=== PATIENT | male | born 1955 | race Caucasian/White ===

== ENCOUNTER 2018-03-15 09:30 | Day surgery (SDC) | payer OTHER ==
[2018-03-14 09:42] LABS: Urine Appearance CLEAR; Urine Bilirubin NEGATIVE (NEG); Urine Blood 1+ (NEG); Urine Color YELLOW; Urine Glucose NEGATIVE (NEG); Urine Protein NEGATIVE (NEG); Urine Specific Gravity 1.015 (1.005-1.030); Urine Urobilinogen 0.2 mg/dL (0.2-1.0); Urine pH 5.5 (5.0-7.0)
[2018-03-14 09:43] LABS: Absolute Lymphocytes (CBC) 1.5 K/uL (0.7-4.9); Absolute Monocytes 0.7 K/uL (0.1-1.3); Absolute Neutrophil 3.9 K/uL (1.8-8.0); Basophils % 0.6 % (0-1.3); Eosinophils % 1.9 % (0-4.4); Hematocrit 44.1 % (39.6-49.0); Lymphocytes % 24.1 % (15.3-44.8); MCH 30.3 pg (27.0-35.0); MPV 8.4 fL (7.6-11.3); Monocytes % 10.7 % (3.3-12.3); RBC Red Blood Cell Count 4.95 M/uL (4.33-5.43)
[2018-03-14 09:48] LABS: Protime INR 1.15
[2018-03-14 10:35] LABS: Potassium 3.9 mmol/L (3.5-5.1)
[2018-03-14 10:36] LABS: Phosphorus 3.6 mg/dL (2.5-4.9); Uric Acid 6.8 mg/dL (3.5-7.2)
[2018-03-14 10:52] LABS: Urine Bacteria NONE SEEN /HPF (NONE SEEN); Urine Culture Reflex Order REFLEXED; Urine RBC <5 /HPF (NONE SEEN)
--- NOTE | 2018-03-14 11:19 | EKG ---
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
--- NOTE | 2018-03-14 11:28 | RAD REPORT ---
EXAM DESCRIPTION: RAD - Chest Pa And Lat (2 Views) - 03/14/2018 11:21 am CLINICAL HISTORY: Preop chest examination, pending lithotripsy COMPARISON: May 2011 TECHNIQUE: PA and lateral views of the chest were obtained. FINDINGS: The lungs are clear. Lung markings are similar to the comparison. Heart size is normal an d central vasculature is within normal limits. No pleural effusion or pneumothorax seen. Thoracic s pine degenerative changes are present. No acute bone process identifiable. No aortic abnormality. Di aphragm is flattened with posterior costophrenic angle blunting. This is a chronic presentation since 2011. Costochondral calcifications present. IMPRESSION: No acute cardiopulmonary process. Above detailed chest findings not significantly diffe rent from 2012.
--- NOTE | 2018-03-14 11:38 | RAD REPORT ---
EXAM DESCRIPTION: RAD - Abdomen Single View - 03/14/2018 11:21 am CLINICAL HISTORY: N20, bilateral kidney stones pending lithotripsy COMPARISON: CT imaging May 2011, KUB March 09 FINDINGS: There are 7 millimeter and 2 millimeter calcifications lower pole of the right kidney. A 9-10 millimeter calcification is present at the left UPJ or proximal ureter. This is lateral to the left L4 transverse process. No change in positioning from March 09. There are probably punctate ur eteral calculi along the superior margin of this UPJ stone similar to March 09. There is a 10-12 mm calcification overlying lower pole of the left kidney. This calcification was pre viously in the right renal pelvis and is likely a mobile stone. Punctate 2-4 mm calcifications are pr esent upper pole left kidney also matching the CT study. Imaging of the pelvis is more limited by technical factors than seen March 09. There still appear s to be a calcification left mid pelvis that is potentially ureteral. No pelvic floor calcifications seen. IMPRESSION: Bilateral nephrolithiasis as detailed. There is a moderate-sized left UPJ calculus as we ll. Small calcification left mid pelvis still present. It is not definitive within this is a ureteral waqas cification or pelvic soft tissue calcification. Overall, no significant change to the calcification pattern since March 09.
[2018-03-15] MEDS ORDERED: Ringers Lactate 1,000 ML IV ONE (09:45)
[2018-03-15] MEDS ORDERED: FENTANYL CITR 100 MCG/2 ML ONE (10:53)
[2018-03-15] MEDS ORDERED: LIDOCAINE 2% MPF 5 ML VIAL ONE (10:53)
[2018-03-15] MEDS ORDERED: PROPOFOL 200 MG/20 ML VIAL IV ONE ×2 (10:53→10:55)
[2018-03-15] MEDS ORDERED: MIDAZOLAM HCL 2 MG/2 ML INJ ONE (10:53)
[2018-03-15] MEDS ORDERED: ONDANSETRON HCL 40 MG/20 ML VIAL ONE (10:54)
[2018-03-15] MEDS: GENTAMICIN 100 MG/100 ML BAG 100 MG/100 ML BAG IV ONE ×2 (11:07→11:10)
[2018-03-15] MEDS ORDERED: ROCURONIUM 50 MG/5 ML VIAL IV ONE (11:19)
[2018-03-15] MEDS ORDERED: SUCCINYLCHOLINE 20 MG/ML (10 ML) IV ONE (11:21)
[2018-03-15] MEDS ORDERED: GLYCOPYRROLATE 0.2 MG/ML SYR ONE ×2 (11:36)
[2018-03-15] MEDS ORDERED: DEXAMETHASONE 10 MG/ML VIAL ONE (11:37)
[2018-03-15] MEDS ORDERED: NEOSTIGMINE 1 MG/ML -5 ML SYRINGE ONE (11:37)
[2018-03-15] MEDS ORDERED: NS 0.9% VIAL 20 ML ONE (11:38)
[2018-03-15] MEDS ORDERED: Phenylephrine HCl 10 MG/ML 1 ML VIAL ONE (11:38)
[2018-03-15] MEDS ORDERED: EPHEDRINE SULF 50 MG/10 ML SYR ONE (11:49)
[2018-03-15 13:07] VITALS: BP 121/55; TEMP 96.8; O2SAT 97
== END 2018-03-15 13:50 | disposition home or self-care (01) ==
LOC: OR 09:30
PROVIDERS: ATTEND Urology
PROC: 0T778DZ Dilation of Left Ureter with Intraluminal Device, Via Natural or Artificial Opening Endoscopic (ICD-10-PCS; 2018-03-15)
PROC: BT1FZZZ Fluoroscopy of Left Kidney, Ureter and Bladder (ICD-10-PCS; 2018-03-15)
PROC: 0TF4XZZ Fragmentation in Left Kidney Pelvis, External Approach (ICD-10-PCS; principal; 2018-03-15 11:00)
DX: N20.2 Calculus of kidney with calculus of ureter (principal); Q62.39 Other obstructive defects of renal pelvis and ureter; I10 Essential (primary) hypertension; Z88.8 Allergy status to other drugs, medicaments and biological substances; Z79.82 Long term (current) use of aspirin
CPT/HCPCS: 36415; 50590; 71046; 74018; 80048; 81001; 84100; 84550; 85025; 85610; 85730; 87086; 87088; 93005; G0103; J0330; J1100; J1580; J2250; J2370; J2405; J2704; J2710; J3010; Q9967

== ENCOUNTER 2018-03-23 10:44 | Day surgery (SDC) | payer OTHER ==
[2018-03-23] MEDS ORDERED: Ringers Lactate 1,000 ML IV ONE ×2 (11:16→14:00)
[2018-03-23] MEDS ORDERED: GENTAMICIN 100 MG/100 ML BAG 100 MG/100 ML BAG IV ONE (11:16)
[2018-03-23] MEDS ORDERED: FENTANYL CITR 100 MCG/2 ML ONE (11:34)
[2018-03-23] MEDS ORDERED: ROCURONIUM 50 MG/5 ML VIAL IV ONE (11:35)
[2018-03-23] MEDS ORDERED: MIDAZOLAM HCL 2 MG/2 ML INJ ONE ×2 (11:35→13:42)
[2018-03-23] MEDS ORDERED: LIDOCAINE 1% MPF 5 ML VIAL ONE (11:35)
[2018-03-23] MEDS ORDERED: PROPOFOL 200 MG/20 ML VIAL IV ONE (11:35)
[2018-03-23] MEDS ORDERED: SUCCINYLCHOLINE 20 MG/ML (10 ML) IV ONE (11:38)
--- NOTE | 2018-03-23 11:50 | RAD REPORT ---
EXAM DESCRIPTION: RAD - Abdomen 1 View (KUB) - 03/23/2018 11:25 am CLINICAL HISTORY: Preop examination, pending treatment for obstructing ureteral calculi, prior litho tripsy COMPARISON: KUB March 17 and March 14 FINDINGS: Double pigtail stent remains in the left collecting system. Lower pole calculus on the rig ht has not changed. No calcifications suspected along the course of the right ureter. No bladder calc jennifer are seen. Multiple small stones or stone fragments are present lower pole left kidney. These appe ar to be smaller in size than the March 17 study likely due to intervening lithotripsy. Patient has a cluster of calcifications in the left UPJ or proximal left ureter region. The largest is in the in ferior aspect of this cluster at approximately 10 mm. Multiple small stones or stone fragments are st acked superiorly to this dominant calculus. Number is increased from March 17 likely reflecting pos t lithotripsy fragments collecting above the obstructing 10 mm stone. IMPRESSION: Approximately 10 mm stone at the left UPJ or proximal ureter unchanged in position from March 17. Multiple smaller stones or stone fragments are stacked along the superior margin of this stone. Multiple small stone fragments are seen lower pole left kidney decreased in size and number. Number of stones stacked near the left UPJ has increased likely representing the stone fragments from treated lower pole calculi. No additional stones or stone fragments along the mid or distal left ureteral stent.
[2018-03-23] MEDS ORDERED: GLYCOPYRROLATE 0.2 MG/ML SYR ONE (12:21)
[2018-03-23] MEDS ORDERED: NEOSTIGMINE 1 MG/ML -5 ML SYRINGE ONE (12:21)
[2018-03-23] MEDS ORDERED: ONDANSETRON HCL 40 MG/20 ML VIAL ONE (12:22)
[2018-03-23] MEDS ORDERED: KETOROLAC 30 MG/ML INJ ONE (12:22)
[2018-03-23] MEDS ORDERED: EPHEDRINE SULF 50 MG/10 ML SYR ONE (12:23)
[2018-03-23] MEDS ORDERED: Mastisol Adhesive Liq ONE (13:35)
--- NOTE | 2018-03-23 13:49 | RAD REPORT ---
EXAM DESCRIPTION: RAD - Urethrocystogrphy Retrograde - 03/23/2018 1:40 pm FINDINGS: Approximately 41 images were obtained during fluoroscopic assisted cystoscopy, ureteroscop y, laser treatment an stone retrieval procedure. Additional cine loop acquisition was obtained. Fluor o time was 4 minutes and 5 seconds. Imaging shows stepwise removal of stent, stone retrieval procedure instead repositioning. No suspicio us or unexpected finding.
[2018-03-23 15:28] VITALS: BP 129/63; TEMP 97.3; O2SAT 98
== END 2018-03-23 16:55 | disposition home or self-care (01) ==
LOC: PRE 10:44 → OR 16:55
PROVIDERS: ATTEND Urology
PROC: 0T778DZ Dilation of Left Ureter with Intraluminal Device, Via Natural or Artificial Opening Endoscopic (ICD-10-PCS; 2018-03-23)
PROC: 0TF78ZZ Fragmentation in Left Ureter, Via Natural or Artificial Opening Endoscopic (ICD-10-PCS; principal; 2018-03-23 12:00)
DX: N20.2 Calculus of kidney with calculus of ureter (principal); Q62.39 Other obstructive defects of renal pelvis and ureter; I10 Essential (primary) hypertension; G47.33 Obstructive sleep apnea (adult) (pediatric); E66.01 Morbid (severe) obesity due to excess calories; Z68.42 Body mass index [BMI] 45.0-49.9, adult; Z79.82 Long term (current) use of aspirin; Z88.8 Allergy status to other drugs, medicaments and biological substances
CPT/HCPCS: 51610; 74018; 74450; J0330; J1580; J2250; J2405; J2704; J2710; J3010; Q9967

== ENCOUNTER 2018-07-29 07:24 | Day surgery (SDC) | payer OTHER ==
[2018-07-29] MEDS ORDERED: ONDANSETRON 4 MG/2 ML VIAL ONE (07:58)
[2018-07-29] MEDS ORDERED: PROPOFOL 200 MG/20 ML VIAL IV ONE (07:58)
[2018-07-29] MEDS ORDERED: LIDOCAINE 1% MPF 5 ML VIAL ONE (07:58)
[2018-07-29] MEDS ORDERED: Ringers Lactate 1,000 ML IV ONE (08:01)
[2018-07-29] MEDS ORDERED: EPINEPHRINE/PF 1 MG/ML AMP ONE (08:41)
[2018-07-29 10:18] VITALS: TEMP 98.9
[2018-07-29 10:21] VITALS: BP 119/56; O2SAT 96
--- NOTE | 2018-08-02 16:02 | ENDO RPT ---
[address], [address] COLONOSCOPY PROCEDURE REPORT EXAM DATE: 07/29/2018 PATIENT NAME: Omid Triplett MR #: [id number] BIRTHDATE: 1955 ATTENDING: Rigo Baugh DR STATUS: outpatient MORTGAGE LENDER: Teresa Hassan and Oneyda Mckoy RN INDICATIONS: The patient is a 62 yr old Male here for a colonoscopy due to Positive Cologuard Fecal Immune Testing PROCEDURE PERFORMED: Colonoscopy with biopsy - cold polypectomy and Colonoscopy with snare polypectomy MEDICATIONS: Per Anesthesia. ESTIMATED BLOOD LOSS: None CONSENT: The patient understands the risks and benefits of the procedure and understands that these risks include, but are not limited to: sedation, allergic reaction, infection, perforation and/or bleeding. Alternative means of evaluation and treatment include, among others: physical exam, x-rays, and/or surgical intervention. The patient elects to proceed with this endoscopic procedure. DESCRIPTION OF PROCEDURE: During intra-op preparation period all mechanical medical equipment was checked for proper function. Hand hygiene and appropriate measures for infection prevention was taken. Procedure, possible complications, alternatives including, but not limited to possibility of bleeding, perforation, tear, infection, sepsis, need for surgery, need for blood transfusion, were explained to the patient. After the risks, benefits and alternatives of the procedure were thoroughly explained, Informed consent was verified, confirmed and timeout was successfully executed by the treatment team. The patient was placed in the left lateral position. A digital rectal exam was performed and revealed internal hemorrhoids. After appropriate level of anesthesia, the scope was passed. The EC-[id number] ([id number]) endoscope was introduced through the anus and advanced to the cecum, which was identified by the ileocecal valve. The quality of the prep was good. The instrument was then slowly withdrawn as the colon was fully examined. Scope withdrawal time was 18 minutes. COLON FINDINGS: Ten small medium sized smooth and polypoid shaped semi-pedunculated polyps with friable surfaces were found throughout the entire examined colon. A polypectomy was performed with a cold snare and using snare cautery. The resection was complete, the polyp tissue was completely retrieved and sent to histology. A one-third circumferential fungating, firm and ulcerated mass was found at the ileocecal valve, this could not be removed, as such a biopsy of the lesion was performed using cold forceps. A tattoo was applied to the cecum. Retroflexed views revealed small hemorrhoids and small rectal polyp. The scope was then completely withdrawn from the patient and the procedure terminated. ADVERSE EVENTS: There were no complications. IMPRESSIONS: 1. Ten small medium sized semi-pedunculated polyps were found throughout the entire examined colon; polypectomy was performed with a cold snare and using snare cautery 2. One-third circumferential mass was found at the ileocecal valve; biopsy of the lesion was performed using cold forceps; a tattoo was applied RECOMMENDATIONS: 1. avoid NSAIDS for 2 weeks 2. await biopsy results 3. fiber rich diet 4. follow-up: office 1 week(s) 5. Monitor for any evidence of rectal bleeding. 6. CT scan 7. hemorrhoidal hygiene 8. increase dietary water 9. Will need CBC, CMP, PT, INR, CEA level 10. surgery RECALL: Surgery Planning Rigo Baugh DR eSigned: Rigo Baugh DR 07/29/2018 9:13 AM cc: CPT CODES: ICD9 CODES: PATIENT NAME: Omid Triplett MR#: [id number]
== END 2018-07-29 10:00 | disposition home or self-care (01) ==
LOC: OR 07:24
PROVIDERS: ATTEND Surgery
PROC: 0DBL8ZX Excision of Transverse Colon, Via Natural or Artificial Opening Endoscopic, Diagnostic (ICD-10-PCS; 2018-07-29)
PROC: 0DBN8ZX Excision of Sigmoid Colon, Via Natural or Artificial Opening Endoscopic, Diagnostic (ICD-10-PCS; 2018-07-29)
PROC: 0DBH8ZX Excision of Cecum, Via Natural or Artificial Opening Endoscopic, Diagnostic (ICD-10-PCS; 2018-07-29)
PROC: 3E0H8GC Introduction of Other Therapeutic Substance into Lower GI, Via Natural or Artificial Opening Endoscopic (ICD-10-PCS; 2018-07-29)
PROC: 0DBK8ZX Excision of Ascending Colon, Via Natural or Artificial Opening Endoscopic, Diagnostic (ICD-10-PCS; principal; 2018-07-29 08:30)
DX: Z12.11 Encounter for screening for malignant neoplasm of colon (principal); C18.0 Malignant neoplasm of cecum; D12.2 Benign neoplasm of ascending colon; D12.5 Benign neoplasm of sigmoid colon; D12.3 Benign neoplasm of transverse colon; K62.1 Rectal polyp; K64.4 Residual hemorrhoidal skin tags; I10 Essential (primary) hypertension; E78.2 Mixed hyperlipidemia; G47.33 Obstructive sleep apnea (adult) (pediatric); Z79.82 Long term (current) use of aspirin; Z79.899 Other long term (current) drug therapy
CPT/HCPCS: 88305; J0171; J2405; J2704

== ENCOUNTER 2018-08-10 08:44 | Inpatient (IN) | payer OTHER ==
[2018-08-09 16:33] LABS: Absolute Lymphocytes (CBC) 1.5 K/uL (0.7-4.9); Absolute Monocytes 0.7 K/uL (0.1-1.3); Absolute Neutrophil 4.8 K/uL (1.8-8.0); Basophils % 0.5 % (0-1.3); Eosinophils % 1.3 % (0-4.4); Hematocrit 40.7 % (39.6-49.0); Lymphocytes % 21.3 % (15.3-44.8); MPV 8.3 fL (7.6-11.3); Monocytes % 9.9 % (3.3-12.3)
[2018-08-09 17:14] LABS: Potassium 3.6 mmol/L (3.5-5.1)
[2018-08-10] MEDS: BUPIVACA 0.25%/EPI 0.0005% MDV 50 ML VIAL ONE ×2 (09:10→10:34)
[2018-08-10] MEDS ORDERED: CEFAZOLIN/SWI 2gm 2 GM/20 ML SYR ONE (09:17)
[2018-08-10] MEDS ORDERED: Ringers Lactate 1,000 ML IV ONE ×3 (09:17→13:06)
[2018-08-10] MEDS ORDERED: MIDAZOLAM HCL 2 MG/2 ML INJ ONE (09:48)
[2018-08-10] MEDS ORDERED: LIDOCAINE 1% MPF 5 ML VIAL ONE (09:48)
[2018-08-10] MEDS ORDERED: DEXAMETHASONE 10 MG/ML VIAL ONE (09:48)
[2018-08-10] MEDS ORDERED: FENTANYL CITR 250 MCG/5 ML ONE ×2 (09:48→11:32)
[2018-08-10] MEDS ORDERED: PROPOFOL 200 MG/20 ML VIAL IV ONE (09:48)
[2018-08-10] MEDS ORDERED: NS 0.9% VIAL 10 ML ONE (09:48)
[2018-08-10] MEDS ORDERED: VECURONIUM 10 MG/VIAL IV ONE (09:49)
[2018-08-10] MEDS ORDERED: ONDANSETRON 4 MG/2 ML VIAL ONE ×2 (09:49→13:14)
[2018-08-10] MEDS ORDERED: EPHEDRINE SULF 50 MG/ML VIAL ONE (10:43)
[2018-08-10] MEDS ORDERED: ROCURONIUM 50 MG/5 ML VIAL IV ONE (11:03)
[2018-08-10] MEDS ORDERED: HYDRALAZINE HCL 20 MG/ML VIAL ONE (12:05)
[2018-08-10] MEDS ORDERED: ESMOLOL HCL 10 ML IV ONE (12:17)
[2018-08-10] MEDS ORDERED: METOPROLOL TARTRATE 5 MG/5 ML INJ IV ONE (12:53)
[2018-08-10] MEDS ORDERED: GLYCOPYRROLATE 0.2 MG/ML SYR ONE ×3 (13:13→13:16)
[2018-08-10] MEDS ORDERED: KETOROLAC 30 MG/ML INJ ONE (13:14)
[2018-08-10] MEDS ORDERED: NEOSTIGMINE 1 MG/ML -10 ML VIAL ONE (13:14)
[2018-08-10] MEDS ORDERED: FENTANYL CITR 100 MCG/2 ML ONE (13:26)
--- NOTE | 2018-08-10 13:33 | P.OP ---
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
[2018-08-10] MEDS ORDERED: ACETAMINOPHEN 500 MG TAB PO PRN (13:43)
[2018-08-10] MEDS ORDERED: ONDANSETRON 4 MG/2 ML VIAL IV PRN (13:43)
[2018-08-10] MEDS: HYDROMORPHONE HCL 2 MG/ML inj ONE ×6 (13:44→14:39)
[2018-08-10] MEDS ORDERED: SUCCINYLCHOLINE 20 MG/ML (10 ML) IV ONE (13:49)
--- NOTE | 2018-08-10 14:36 | OP ---
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 Procedure Performed: Exploratory laparotomy with right hemicolectomy and primary anastomosis. Anesthesia: General endotracheal. Estimated Blood Loss: 150 cc. Specimen: Right colon, #1 and #2 additional lymph nodes from inferior mesenteric vascular pedicle.. Findings: No gross extraintestinal disease. Complications: None. Drains: Urinary catheter. Transferred to recovery room in good condition. Procedure In Detail: After informed consent was obtained, patient was brought to the operating room, prepped and draped in the usual sterile fashion after adequate anesthesia achieved. An upper midlin e incision was made down to the infraumbilical portion with a 10-blade down to the subcutaneous tissu es. Electrocautery was used to dissect down through adipose tissue down to expose the fascial plane. The peritoneum was grasped, elevated, and sharply entered, after this was entered sharply. The rem ainder of the abdomen was opened in its entirety using electrocautery. At this time, I inspected the right colon and saw obvious tattooing from previous colonoscopy in the cecum. The area was palpated and an obvious cecal mass was palpable within the lumen of the colon. There was no extraintestinal spread visible. There were some adhesions to the small bowel, but these appeared to be somewhat alve olar and did not appear to be grossly involved on the distal small bowel. I then inspected the liver and remainder of the peritoneal surfaces and found no evidence of metastatic spread. At this time, the entire small bowel was run from the ligament of Treitz to the ileocecal valve without evidence of gross keanu disease. I then turned attention to the colon and took down lateral to medial direction the White line of Toldt to expose Gerota's fascia and keep it on the down plane. I then continued d issection around to the hepatic flexure and mobilized the colon on the right aspect. I then turned m y attention to the small bowel and dissected the peritoneum on the distal margin of the small bowel t o be demarcated approximately 10 cm from the ileocecal valve. I then came around the medial aspect a nd scored the peritoneum on the medial aspect. I dissected down to expose the ileocolic vessels. Th is was taken down to expose the inferior mesenteric vein and the ileocolic vein and artery. I then e ncircled the ileocolic artery and placed titanium clips as both fiducial marker as well as to clip an d help achieve hemostasis of the structure. I then did the same on the ileocolic vein and ligated th e above structures with the LigaSure Impact device. Once these structures were ligated, remainder of the dissection continued up to expose the duodenum and dissect the colon off the duodenum and leavin g the alveolar plane in place without any obvious injury to the duodenum or head of pancreas. I cont inued toward the right upper quadrant by dissecting the adipose tissue and the mesentery as well as t o bivalve portion of the omentum to allow for better visualization of the colon. After the distal as pect of the resection was identified on the small bowel near the terminal ileum, approximately 10 cm from this ileocecal valve, I created a mesenteric window with the electrocautery and then fired the G IA 75 with a blue load across the small bowel to create the distal margin. I then used a LigaSure de vice to take down the mesentery extending up toward the colon making sure to spare Gerota's fascia an d keep the ureter in the retroperitoneal space. The ureter was not visualized at this time, however, as I kept in the retroperitoneal space. I continued the dissection medially and noted that there wa s a lymph node proximally near the confluence of the inferior mesenteric vein. Therefore, I decided to take an additional margin of an ileocolic vessel closer to the confluence of the inferior mesenter ic vein as these lymph nodes were visualized and had dye present within them from the previous colono scopy inking and they were palpable at this time. I then sent this off for pathologic examination as an additional margin. I placed additional fiducial markers in this area with clips and continued th e dissection of the colon to free it up from the medial and lateral attachments in its entirety. At the distal margin of the colon, specimen was then marked dated beyond the hepatic flexure. The mesen teric window was created on the transverse mesocolon at this point using electrocautery and the KAYLI 7 5 blue load was once again fired across this to create the distal margin. The remainder of the vascu lar tissues including a small right branch of the middle colic vessel was ligated with the LigaSure d evice with easy and good hemostasis without any additional hemostatic maneuvers. The specimen was th en passed off the back table for examination. I then opened the specimen on the back table its entir ety and found the mass to be in the cecum, and with adequate margins evident, I decided to proceed wi th surgery confident that the margins were adequate. I then rescrubbed and reentered the room and in spected the staple lines. I lined the small bowel in a [id number] peristaltic manner with the irwin sverse colon, antimesenteric border. I placed silk stitches on both the proximal and distal aspects of the anastomosis, stay sutures. This was a 2-0 silk suture. I created enterotomies on the small b owel and the along the tenia of the transverse colon and then placed the KAYLI 75 blue load to create a common channel. The KAYLI 75 was fired and removed. The common channel was found to be good and wide ly patent and there was no additional hemostatic maneuvers required. I then closed the defect with a 2-0 PDS suture in a canal type stitch in a running fashion. I then closed and imbricated over the s econd layer with Lembert sutures, a 2-0 nylon suture for a second layer of closure. The mesenteric w indow was then closed with a 3-0 Vicryl in a running fashion and no additional hemostatic maneuvers w ere required. The abdomen was then copiously irrigated multiple times until completely clear and suc tioned out. EBL was minimal, up to this point approximately 100-150 cc, and the abdomen was copiousl y irrigated one last time and suctioned out until completely dry. The patient was positioned back in neutral position as they were in a slight right tilt prior to this, and I wrapped the anastomosis wi th the omentum, which was found to be quite large in volume at this time. I then closed the abdomen in a running fashion using a #1 looped PDS with good approximation of the tissues and irrigated the s kin copiously until completely cleansed. I then dried the skin and closed it with interrupted staple s and sterile dressing was placed over top. The patient tolerated the procedure well without evidenc e of complication, transferred to PACU in good condition. All counts were correct at the end of the case. NISHANT/ALBERTO Voice ID: [id number] Report ID: [id number]
[2018-08-10] MEDS: D5.45NS W/KCL 20MEQ 1,000 ML IV SCH (15:51)
[2018-08-10] MEDS: INSULIN -REGULAR HUMAN 50 UNIT/0.5 ML ML SQ SCH ×2 (16:30→20:32)
[2018-08-10] MEDS: HYDROMORPHONE HCL 1 MG/ML INJ IV PRN (16:40)
--- NOTE | 2018-08-10 18:18 | P.CNS ---
Date of Consult: 08/10/18 Reason for Consult: Sleep Apnea Requesting Physician: Rigo Baugh Chief Complaint: Sleep Apnea History of Present Illness: This is a 63-year-old male with significant past medical history of hypertension and sleep apnea who was admitted to the hospital that likely for resection of his colon cancer. Patient is currently status post Exploratory laparotomy with right hemicolectomy and primary anastomosis by general surgery today. Medicine team was consulted on the case to manage chronic medical condition. Currently patient is doing well. Denies having any nausea vomiting shortness of breath or chest pain at this time. States that his abdominal discomfort is there due to the recent surgery. No other complaints to offer at this time Allergies promethazine [From Phenergan] Allergy (Mild, Verified 08/09/18 15:15) TONGUE SWELLS Home Medications: Aspirin [Aspirin EC 81 MG] 81 mg PO DAILY 08/09/18 Fexofenadine HCl [[place] Allergy] 180 mg PO DAILY 08/09/18 Lisinopril/Hydrochlorothiazide [Lisinopril-Hctz 20-12.5 mg Tab] 1 each PO [id number] 08/09/18 Magnesium Citrate 400 mg PO DAILY 08/09/18 - Past Medical/Surgical History Diabetic: No -: Eczema -: Hyperlipidemia -: Nephrolithiasis -: Obesity -: Seasonal allergies -: hx of cellulitis -: Lithotripsy feb 2018 -: Tonsillectomy 5 yrs Psychosocial/ Personal History: He is of 37 years. He has children. 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 moist/pink, EOMI, Sclerae nonicteric Neck: Supple, 2+ carotid pulse no bruit, No LAD, Without JVD or thyroid abnormality Respiratory: Clear to auscultation bilaterally, Normal air movement Cardiovascular: Regular rate/rhythm, Normal S1 S2 Gastrointestinal: Normal bowel sounds, Other (Abdominal binder in place.), Tenderness Musculoskeletal: No tenderness Integumentary: No rashes Neurological: Normal gait, Normal speech, Normal tone, Normal affect Lymphatics: No axilla or inguinal lymphadenopathy - Problems (1) Colon cancer Current Visit: Yes Status: Acute Plan: Colon cancer -status post expiratory laparotomy with hemicolectomy and primary anastomosis POD # 0 -general surgeries on the case as primary. -clear liquid diet at this time -encouraged to ambulate in use incentive spirometer at this time as well. Qualifiers: Colon location: unspecified part of colon Qualified Code(s): C18.9 - Malignant neoplasm of colon, unspecified (2) Hypertension Current Visit: No Status: Chronic Plan: Blood pressure is on the lower side -hold lisinopril/hctz at this time Qualifiers: Hypertension type: essential hypertension (3) Obstructive sleep apnea Current Visit: No Status: Chronic Plan: CPAP at night (4) Obesity Current Visit: No Status: Chronic Qualifiers: Obesity type: due to excess calories Obesity classification: adult class 3 (BMI >= 40) Serious obesity comorbidity presence: with serious comorbidity Body mass index: BMI 40.0-44.9 Qualified Code(s): E66.01 - Morbid (severe) obesity due to excess calories; Z68.41 - Body mass index (BMI) 40.0-44.9, adult Conclusions/Impression: Will follow along with general surgery to manage patient's chronic medical condition. Thank you for the kind consult Critical Care: No
[2018-08-10 18:23] VITALS: BMI 46.3
[2018-08-10] MEDS ORDERED: PNEUMOCOCCAL VACCINE 0.5 ML IMVAC ONE (19:00)
[2018-08-10] MEDS: HYDROCODONE/APAP 7.5/325 MG TAB PO PRN (20:28)
[2018-08-11] MEDS: HYDROMORPHONE HCL 1 MG/ML INJ IV PRN ×7 (00:29→21:47)
[2018-08-11] MEDS: D5.45NS W/KCL 20MEQ 1,000 ML IV SCH ×4 (00:30→20:41)
[2018-08-11] MEDS ORDERED: HOME MED 1 EA UNK (Lisinopril/Hydrochlorothiazide [Lisinopril-Hctz 20-12.5 Mg Tab] 1 EACH) PO SCH (06:00)
[2018-08-11 06:16] LABS: Absolute Lymphocytes (CBC) 1.4 K/uL (0.7-4.9); Absolute Monocytes 1.1 K/uL (0.1-1.3); Absolute Neutrophil 9.7 K/uL (1.8-8.0); Basophils % 0.1 % (0-1.3); Lymphocytes % 11.4 % (15.3-44.8); Monocytes % 8.8 % (3.3-12.3); RBC Red Blood Cell Count 4.37 M/uL (4.33-5.43)
[2018-08-11] MEDS: INSULIN -REGULAR HUMAN 50 UNIT/0.5 ML ML SQ SCH ×4 (07:30→20:38)
[2018-08-11] MEDS: ENOXAPARIN 40 MG/0.4 ML SQ SCH (08:00)
[2018-08-11] MEDS: FEXOFENADINE 180 MG TAB PO SCH (08:19)
--- NOTE | 2018-08-11 08:29 | P.PN ---
Subjective Date of Service: 08/11/18 Chief Complaint: Sleep Apnea Subjective: Improving (Patient feels generally well, has some cramping, tolerating clear liquids well, hungry for solids, using incentive spirometry, no acute events, pain well controlled with current regime) Physical Examination - Vital Signs Temperature: 97.3 F Blood Pressure: 102/55 Pulse: 65 Respirations: 20 Pulse Ox (%): 97 - Physical Exam General: Alert, In no apparent distress, Cooperative HEENT: Mucous membr. moist/pink Respiratory: Other (IS ~1500cc) Cardiovascular: No edema Gastrointestinal: Other (soft, mild appropriate TTP, ND, incisions clean, marciano in place, minimal serosanguanous drainage on gauze) Integumentary: No rashes Neurological: Normal speech Urinary: Aponte catheter - Studies Laboratory Data (last 24 hrs) 08/11/18 05:50: WBC 12.1 H D, Hgb 11.8 L, Hct 36.0 L, Plt Count 215 Assessment And Plan - Current Problems (Diagnosis) (1) Colon cancer Current Visit: Yes Status: Acute Plan: POD#1 s/p open right hemicolectomy with primary anastamosis Neuro: continue current pain regime, encourage PO pain meds CVS: stable Pulm: continue incentive spirometry Q15min with goal of 15cc/kg, continue CPAP @ night GI: await bowel function, continue serial exams FEN: continue IV hydration, electrolyte replacement protocol, labs pending, advance to full liquid diet with boost / ensure ID: no fever, leukocytosis likely SIRS related from surgery, no need for antibiotics, DC aponte now Endo: continue sliding scale insulin Prophylaxis: continue SCDs until ambulatory today, continue lovenox Ambulate with PT Qualifiers: Colon location: unspecified part of colon Qualified Code(s): C18.9 - Malignant neoplasm of colon, unspecified
[2018-08-11 08:40] LABS: Phosphorus 2.9 mg/dL (2.5-4.9); Potassium 3.8 mmol/L (3.5-5.1)
[2018-08-11] MEDS: HYDROCODONE/APAP 7.5/325 MG TAB PO PRN ×4 (10:04→23:30)
[2018-08-11] MEDS ORDERED: POTASSIUM CL SA 10 MEQ TAB PO ONE (10:33)
--- NOTE | 2018-08-11 11:20 | P.PN ---
Subjective Date of Service: 08/11/18 Chief Complaint: Sleep Apnea Subjective: Tolerating diet, Ambulating, Working w/ PT, Doing well Review of Systems 10-point ROS is otherwise unremarkable Physical Examination - Vital Signs Temperature: 97.3 F Blood Pressure: 102/55 Pulse: 65 Respirations: 20 Pulse Ox (%): 97 - Physical Exam General: Alert, In no apparent distress HEENT: Atraumatic, PERRLA, EOMI Neck: Supple, JVD not distended Respiratory: Clear to auscultation bilaterally, Normal air movement Cardiovascular: Regular rate/rhythm, Normal S1 S2 Gastrointestinal: Normal bowel sounds, Tenderness Musculoskeletal: No tenderness Integumentary: No rashes Neurological: Normal speech, Normal tone, Normal affect Lymphatics: No axilla or inguinal lymphadenopathy - Studies Laboratory Data (last 24 hrs) 08/11/18 05:50: Sodium 137, Potassium 3.8, BUN 13, Creatinine 1.14, Glucose 139 H, Phosphorus 2.9, Magnesium 2.0 08/11/18 05:50: WBC 12.1 H D, Hgb 11.8 L, Hct 36.0 L, Plt Count 215 Medications List Reviewed: Yes Assessment And Plan - Current Problems (Diagnosis) (1) Colon cancer Current Visit: Yes Status: Acute Plan: Colon cancer -status post expiratory laparotomy with hemicolectomy and primary anastomosis POD # 1 -general surgeries on the case as primary. -clear liquid diet at this time -encouraged to ambulate in use incentive spirometer at this time as well. -No BM and Flatulence yet Qualifiers: Colon location: unspecified part of colon Qualified Code(s): C18.9 - Malignant neoplasm of colon, unspecified (2) Hypertension Current Visit: No Status: Chronic Plan: Blood pressure is on the lower side -hold lisinopril/hctz at this time Qualifiers: Hypertension type: essential hypertension (3) Obstructive sleep apnea Current Visit: No Status: Chronic Plan: CPAP at night (4) Obesity Current Visit: No Status: Chronic Qualifiers: Obesity type: due to excess calories Obesity classification: adult class 3 (BMI >= 40) Serious obesity comorbidity presence: with serious comorbidity Body mass index: BMI 40.0-44.9 Qualified Code(s): E66.01 - Morbid (severe) obesity due to excess calories; Z68.41 - Body mass index (BMI) 40.0-44.9, adult Discharge Plan: Home Plan to discharge in: Greater than 2 days - Code Status/Comfort Care Code Status Assessed: Yes Critical Care: No
[2018-08-12 04:41] LABS: Absolute Lymphocytes (CBC) 1.1 K/uL (0.7-4.9); Basophils % 0.3 % (0-1.3); Eosinophils % 0.2 % (0-4.4); Hematocrit 43.7 % (39.6-49.0); Lymphocytes % 8.3 % (15.3-44.8); MPV 8.3 fL (7.6-11.3); Monocytes % 7.5 % (3.3-12.3); RBC Red Blood Cell Count 5.28 M/uL (4.33-5.43)
[2018-08-12 04:59] LABS: Magnesium 2.1 mg/dL (1.8-2.4); Phosphorus 1.9 mg/dL (2.5-4.9)
[2018-08-12] MEDS: D5.45NS W/KCL 20MEQ 1,000 ML IV SCH ×3 (06:41→20:30)
[2018-08-12] MEDS: FEXOFENADINE 180 MG TAB PO SCH (06:50)
[2018-08-12] MEDS: HYDROCODONE/APAP 7.5/325 MG TAB PO PRN ×3 (06:50→20:28)
[2018-08-12] MEDS: INSULIN -REGULAR HUMAN 50 UNIT/0.5 ML ML SQ SCH ×4 (07:30→20:29)
[2018-08-12] MEDS ORDERED: POTASSIUM PHOS IN 0.9 % NACL 15 MMOL/250 ML BAG IV ONE (07:33)
[2018-08-12] MEDS: ENOXAPARIN 40 MG/0.4 ML SQ SCH (09:23)
--- NOTE | 2018-08-12 09:32 | P.PN ---
Subjective Date of Service: 08/12/18 Chief Complaint: Sleep Apnea Subjective: Improving (Patient had small bowel movement and passing gas, pain continues to improve, no breathing difficulty, ambulatory in halls yesterday) Physical Examination - Vital Signs Temperature: 97.4 F Blood Pressure: 154/74 Pulse: 89 Respirations: 18 Pulse Ox (%): 98 - Physical Exam General: Alert, In no apparent distress, Cooperative HEENT: Mucous membr. moist/pink Gastrointestinal: Other (soft, mild appropriate TTP, ND, improved from prior.) - Studies Laboratory Data (last 24 hrs) 08/12/18 04:09: Sodium 138, Potassium 4.0, BUN 7, Creatinine 0.88, Glucose 164 H , Phosphorus 1.9 L, Magnesium 2.1 08/12/18 04:09: WBC 13.2 H, Hgb 14.5 D, Hct 43.7 D, Plt Count 228 Medications List Reviewed: Yes Assessment And Plan - Current Problems (Diagnosis) (1) Colon cancer Current Visit: Yes Status: Acute Plan: POD#2 s/p open right hemicolectomy with primary anastamosis Neuro: continue current pain regime, encourage PO pain meds CVS: stable Pulm: continue incentive spirometry Q15min with goal of 15cc/kg, continue CPAP @ night GI: continue serial exams FEN: continue IV hydration, electrolyte replacement protocol, advance to soft diet with boost / ensure ID: no fever, leukocytosis likely SIRS related from surgery and respiratory component, no need for antibiotics, aponte out Endo: continue sliding scale insulin Prophylaxis: continue SCDs until ambulatory today, continue lovenox Ambulate with PT Qualifiers: Colon location: unspecified part of colon Qualified Code(s): C18.9 - Malignant neoplasm of colon, unspecified
--- NOTE | 2018-08-12 13:24 | P.PN ---
Subjective Date of Service: 08/12/18 Chief Complaint: Sleep Apnea Subjective: Tolerating diet, Ambulating, Improving, Working w/ PT, Doing well Review of Systems 10-point ROS is otherwise unremarkable Physical Examination - Vital Signs Temperature: 97.4 F Blood Pressure: 156/76 Pulse: 84 Respirations: 18 Pulse Ox (%): 96 - Physical Exam General: Alert, In no apparent distress HEENT: Atraumatic, PERRLA, EOMI Neck: Supple, JVD not distended Respiratory: Clear to auscultation bilaterally, Normal air movement Cardiovascular: Regular rate/rhythm, Normal S1 S2 Gastrointestinal: Normal bowel sounds, Other (Insicions C/D/I no drainage noted. ), Tenderness Musculoskeletal: No tenderness Integumentary: No rashes Neurological: Normal speech, Normal tone, Normal affect Lymphatics: No axilla or inguinal lymphadenopathy - Studies Laboratory Data (last 24 hrs) 08/12/18 04:09: Sodium 138, Potassium 4.0, BUN 7, Creatinine 0.88, Glucose 164 H , Phosphorus 1.9 L, Magnesium 2.1 08/12/18 04:09: WBC 13.2 H, Hgb 14.5 D, Hct 43.7 D, Plt Count 228 Medications List Reviewed: Yes Assessment And Plan - Current Problems (Diagnosis) (1) Colon cancer Current Visit: Yes Status: Acute Plan: Colon cancer -status post expiratory laparotomy with hemicolectomy and primary anastomosis POD # 2 -general surgeries on the case as primary. -clear liquid diet at this time -encouraged to ambulate in use incentive spirometer at this time as well. -+ for BM and Flatulence yet Qualifiers: Colon location: unspecified part of colon Qualified Code(s): C18.9 - Malignant neoplasm of colon, unspecified (2) Hypertension Current Visit: No Status: Chronic Plan: Blood pressure is on the higher side - Start lisinopril/hctz at this time Qualifiers: Hypertension type: essential hypertension (3) Obstructive sleep apnea Current Visit: No Status: Chronic Plan: CPAP at night (4) Obesity Current Visit: No Status: Chronic Qualifiers: Obesity type: due to excess calories Obesity classification: adult class 3 (BMI >= 40) Serious obesity comorbidity presence: with serious comorbidity Body mass index: BMI 40.0-44.9 Qualified Code(s): E66.01 - Morbid (severe) obesity due to excess calories; Z68.41 - Body mass index (BMI) 40.0-44.9, adult Discharge Plan: Home Plan to discharge in: 48 Hours - Code Status/Comfort Care Code Status Assessed: Yes Critical Care: No
[2018-08-12] MEDS: ENSURE ENLIVE 237 ML CAN PO SCH ×3 (14:00→21:00)
[2018-08-12] MEDS ORDERED: GLUCAGON 1 MG/VIAL IM PRN (17:00)
[2018-08-12] MEDS ORDERED: D50W 25 GM/50 ML SYRINGE IV PRN (17:00)
[2018-08-12] MEDS: HYDROMORPHONE HCL 1 MG/ML INJ IV PRN (17:21)
[2018-08-13] MEDS: HYDROCODONE/APAP 7.5/325 MG TAB PO PRN ×2 (03:40→08:45)
[2018-08-13 04:45] LABS: Absolute Lymphocytes (CBC) 1.3 K/uL (0.7-4.9); Absolute Neutrophil 7.1 K/uL (1.8-8.0); Basophils % 0.5 % (0-1.3); Eosinophils % 1.8 % (0-4.4); Hematocrit 41.6 % (39.6-49.0); Lymphocytes % 13.3 % (15.3-44.8); MPV 8.2 fL (7.6-11.3); Monocytes % 10.3 % (3.3-12.3); RBC Red Blood Cell Count 5.07 M/uL (4.33-5.43)
[2018-08-13 05:05] LABS: BUN Blood Urea Nitrogen 6 mg/dL (7-18); Bicarbonate 27 mmol/L (21-32); Glucose Level 132 mg/dL (74-106); Magnesium 2.1 mg/dL (1.8-2.4); Phosphorus 2.6 mg/dL (2.5-4.9); Potassium 3.8 mmol/L (3.5-5.1); Sodium Level 138 mmol/L (136-145)
[2018-08-13] MEDS: INSULIN -REGULAR HUMAN 50 UNIT/0.5 ML ML SQ SCH (07:30)
[2018-08-13] MEDS: FEXOFENADINE 180 MG TAB PO SCH (08:40)
[2018-08-13] MEDS: ENOXAPARIN 40 MG/0.4 ML SQ SCH (08:41)
[2018-08-13] MEDS: ENSURE ENLIVE 237 ML CAN PO SCH (08:42)
[2018-08-13] MEDS ORDERED: LISINOPRIL 20 MG TAB PO SCH (09:00)
[2018-08-13] MEDS ORDERED: POTASSIUM CL SA 10 MEQ TAB PO ONE (09:00)
[2018-08-13] MEDS ORDERED: hydroCHLOROthiazide 12.5 MG CAP PO SCH (09:00)
[2018-08-13 09:05] VITALS: O2SAT 94
--- NOTE | 2018-08-13 09:50 | P.DS ---
Admission Date: 08/10/18 Discharge Date: 08/13/18 Disposition: ROUTINE DISCHARGE Discharge Condition: GOOD Reason for Admission: Sleep Apnea Consultations: Dr. 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 Hospital Course: Patient did well post op, had ambulated early, tolerated diet, had return of bowel function on POD#2, pain well controlled, no acute events, no leukocytosis. - no post op complications, followed my ERAS program for enhanced recovery Vital Signs/Physical Exam: Temp Pulse Resp BP Pulse Ox 97.7 F 84 16 159/71 H 97 08/13/18 08:00 08/13/18 08:41 08/13/18 08:00 08/13/18 08:41 08/13/18 08:00 General: Alert, In no apparent distress, Cooperative HEENT: Mucous membr. moist/pink Gastrointestinal: Other (soft, mild appropriate TTP, ND, incision clean and dry with marciano in place) Laboratory Data at Discharge: WBC 9.6 K/uL (4.3-10.9) D 08/13/18 04:01 Hgb 13.9 g/dL (13.6-17.9) 08/13/18 04:01 Hct 41.6 % (39.6-49.0) 08/13/18 04:01 Plt Count 230 K/uL (152-406) 08/13/18 04:01 Sodium 138 mmol/L (136-145) 08/13/18 04:01 Potassium 3.8 mmol/L (3.5-5.1) 08/13/18 04:01 BUN 6 mg/dL (7-18) L 08/13/18 04:01 Creatinine 0.80 mg/dL (0.55-1.3) 08/13/18 04:01 Glucose 132 mg/dL (74-106) H 08/13/18 04:01 Phosphorus 2.6 mg/dL (2.5-4.9) 08/13/18 04:01 Magnesium 2.1 mg/dL (1.8-2.4) 08/13/18 04:01 Home Medications: Aspirin [Aspirin EC 81 MG] 81 mg PO DAILY 08/09/18 Fexofenadine HCl [[place] Allergy] 180 mg PO DAILY 08/09/18 Lisinopril/Hydrochlorothiazide [Lisinopril-Hctz 20-12.5 mg Tab] 1 each PO [id number] 08/09/18 Magnesium Citrate 400 mg PO DAILY 08/09/18 Diet: Regular Activity: No lifting more than 10 lbs Followup: Rigo Baugh MD [ACTIVE - CAN ADMIT] - Time spent managing pt's care (in minutes): 20
--- NOTE | 2018-08-13 11:34 | P.PN ---
Subjective Date of Service: 08/13/18 Chief Complaint: Sleep Apnea Subjective: Tolerating diet, Ambulating, Improving, Working w/ PT, Doing well Review of Systems 10-point ROS is otherwise unremarkable Physical Examination - Vital Signs Temperature: 97.7 F Blood Pressure: 159/71 Pulse: 84 Respirations: 16 Pulse Ox (%): 97 - Physical Exam General: Alert, In no apparent distress, Obese HEENT: Atraumatic, PERRLA, EOMI Neck: Supple, JVD not distended Respiratory: Clear to auscultation bilaterally, Normal air movement Cardiovascular: Regular rate/rhythm, Normal S1 S2 Gastrointestinal: Normal bowel sounds, Other (Incision is clean dry and intact) Musculoskeletal: No tenderness Integumentary: No rashes Neurological: Normal speech, Normal tone, Normal affect Lymphatics: No axilla or inguinal lymphadenopathy - Studies Laboratory Data (last 24 hrs) 08/13/18 04:01: Sodium 138, Potassium 3.8, BUN 6 L, Creatinine 0.80, Glucose 132 H, Phosphorus 2.6, Magnesium 2.1 08/13/18 04:01: WBC 9.6 D, Hgb 13.9, Hct 41.6, Plt Count 230 Medications List Reviewed: Yes Assessment And Plan - Current Problems (Diagnosis) (1) Colon cancer Current Visit: Yes Status: Acute Plan: Colon cancer -status post expiratory laparotomy with hemicolectomy and primary anastomosis POD # 3 -general surgeries on the case as primary. -full liquid diet -encouraged to ambulate in use incentive spirometer at this time as well. -+ for BM and Flatulence yet Qualifiers: Colon location: unspecified part of colon Qualified Code(s): C18.9 - Malignant neoplasm of colon, unspecified (2) Hypertension Current Visit: No Status: Chronic Plan: Blood pressure stable this morning - continue with lisinopril/hctz at this time Qualifiers: Hypertension type: essential hypertension (3) Obstructive sleep apnea Current Visit: No Status: Chronic Plan: CPAP at night (4) Obesity Current Visit: No Status: Chronic Qualifiers: Obesity type: due to excess calories Obesity classification: adult class 3 (BMI >= 40) Serious obesity comorbidity presence: with serious comorbidity Body mass index: BMI 40.0-44.9 Qualified Code(s): E66.01 - Morbid (severe) obesity due to excess calories; Z68.41 - Body mass index (BMI) 40.0-44.9, adult - Plan Patient is currently hemodynamically stable and overall doing well postprocedure. Can be discharged home if okay with general surgery. Discharge Plan: Home Plan to discharge in: Greater than 2 days - Code Status/Comfort Care Code Status Assessed: Yes Critical Care: No
[2018-08-13 12:45] VITALS: BP 169/86; TEMP 97.5
== END 2018-08-13 12:18 | disposition home or self-care (01) | DRG 330 ==
LOC: OR 08:44 → 2ND 13:56
PROVIDERS: ADMIT Surgery; ATTEND Surgery
PROC: 07BB0ZX Excision of Mesenteric Lymphatic, Open Approach, Diagnostic (ICD-10-PCS; 2018-08-10)
PROC: 0DTF0ZZ Resection of Right Large Intestine, Open Approach (ICD-10-PCS; principal; 2018-08-10 10:30)
DX: C18.9 Malignant neoplasm of colon, unspecified (principal); Z68.41 Body mass index [BMI] 40.0-44.9, adult; I10 Essential (primary) hypertension; E78.5 Hyperlipidemia, unspecified; E66.01 Morbid (severe) obesity due to excess calories; G47.33 Obstructive sleep apnea (adult) (pediatric)
CPT/HCPCS: 36415; 80048; 80051; 82565; 82962; 83735; 84100; 84520; 85025; 88309; 94760; 97116; 97163; J0330; J0360; J0690; J1100; J1170; J1650; J2250; J2405; J2704; J2710; J3010

== ENCOUNTER 2018-08-14 16:06 | Inpatient (IN) | payer OTHER ==
[2018-08-14] MEDS ORDERED: NA CHLORIDE 0.9% 1,000 ML ONE (16:29)
[2018-08-14] MEDS ORDERED: METOCLOPRAMIDE 10 MG/2mL INJ ONE (16:29)
[2018-08-14 17:10] LABS: Absolute Lymphocytes (CBC) 0.9 K/uL (0.7-4.9); Absolute Neutrophil 13.9 K/uL (1.8-8.0); Basophils % 0.2 % (0-1.3); Lymphocytes % 5.8 % (15.3-44.8); MPV 8.1 fL (7.6-11.3); Monocytes % 6.5 % (3.3-12.3); RBC Red Blood Cell Count 5.46 M/uL (4.33-5.43)
--- NOTE | 2018-08-14 17:13 | RAD REPORT ---
EXAM DESCRIPTION: RAD - Chest Single View - 08/14/2018 4:49 pm CLINICAL HISTORY: Nausea, excessive hiccups abdominal pain COMPARISON: August 01 TECHNIQUE: AP portable chest image was obtained 1647 hours . FINDINGS: Lung volumes are low. Left costophrenic angle blunting is believed to be artifact of body habitus and shallow inspiration portable imaging. Failure and volume overload are not suspected. Lung markings are accentuated by the shallow inspiration. Left base pneumonia is not confirmed. Patient jeff miller has some lung base atelectasis. Heart size normal range for portable imaging and shallow inspiration. No vascular engorgement. No me asurable pleural effusion and no pneumothorax. No acute bony abnormality seen. No acute aortic findin gs suspected. IMPRESSION: Limited shallow inspiration examination. No pneumonia seen. Lung base atelectasis is likely.
[2018-08-14 17:24] LABS: Albumin 3.4 g/dL (3.4-5.0); Bilirubin Direct 0.5 mg/dL (0-0.2); Bilirubin Total 1.3 mg/dL (0.2-1.0); Magnesium 2.4 mg/dL (1.8-2.4); Phosphorus 4.9 mg/dL (2.5-4.9); Potassium 3.6 mmol/L (3.5-5.1); Protein, Total 7.4 g/dL (6.4-8.2)
[2018-08-14 17:43] LABS: Blood Morphology Comment NOT SEEN (NOT SEEN); Platelet Estimate ADEQ; Urine White Blood Cell Casts OK
--- NOTE | 2018-08-14 18:21 | ER ---
Nurse's Notes [facility] Name: Omid Triplett III Age: 62 yrs Sex: Male : 1955 Arrival Date: 08/14/2018 Time: 16:07 Bed 7 Private MD: Diagnosis: Vomiting;Dehydration;Atelectasis;Constipation, unspecified Presentation: 08/14 16:09 Presenting complaint: Patient states: "i just had an abdominal surgery, today i started hj having non stop hiccups and i felt nauseous and threw up once before i came in here" denies fever, states, been days haven't had a BM; on triage, marciano on abd surgery in place, no drainage noticed;. Transition of care: patient was not received from another setting of care. Onset of symptoms was August 14, 2018. Risk Assessment: Do you want to hurt yourself or someone else? Patient reports no desire to harm self or others. Initial Sepsis Screen: Does the patient meet any 2 criteria? No. Patient's initial sepsis screen is negative. Does the patient have a suspected source of infection? No. Patient's initial sepsis screen is negative. Care prior to arrival: None. 16:09 Method Of Arrival: Ambulatory 16:09 Acuity: GEE 3 hj Triage Assessment: 16:12 General: Appears in no apparent distress. uncomfortable, obese, Behavior is calm, hj cooperative, appropriate for age. Pain: Complains of pain in abdomen. Historical: - Allergies: 16:12 Phenergan; hj - Home Meds: 16:50 lisinopril-hydrochlorothiazide 10-12.5 mg oral tab 1 tab once daily [Active]; [place] hj Oral [Active]; Zofran Oral [Active]; - PMHx: 16:12 Kidney stones; hj - PSHx: 16:12 Lithotripsy; hj - Immunization history:: Adult Immunizations up to date. - Social history:: Smoking status: Patient/guardian denies using tobacco, Patient/guardian denies using alcohol. - Ebola Screening: : Patient negative for fever greater than or equal to 101.5 degrees Fahrenheit, and additional compatible Ebola Virus Disease symptoms Patient denies exposure to infectious person Patient denies travel to an Ebola-affected area in the 21 days before illness onset. - Family history:: not pertinent. - Hospitalizations: : The patient was recently seen at [facility]. Screenin:12 Abuse screen: Denies threats or abuse. Denies injuries from another. Nutritional hj screening: No deficits noted. Tuberculosis screening: No symptoms or risk factors identified. Fall Risk None identified. Assessment: 16:30 General: Appears in no apparent distress. uncomfortable, Behavior is calm, cooperative, hj appropriate for age. Pain: Complains of pain in abdomen. Neuro: Level of Consciousness is awake, alert, obeys commands, Oriented to person, place, time, situation, Appropriate for age. Cardiovascular: Capillary refill < 3 seconds Patient's skin is warm and dry. Respiratory: Airway is patent Respiratory effort is even, unlabored, Respiratory pattern is regular, symmetrical. GI: Reports lower abdominal pain, hiccups. : No signs and/or symptoms were reported regarding the genitourinary system. EENT: No signs and/or symptoms were reported regarding the EENT system. Derm: No signs and/or symptoms reported regarding the dermatologic system. Musculoskeletal: No signs and/or symptoms reported regarding the musculoskeletal system. 17:51 Reassessment: Patient and/or family updated on plan of care and expected duration. Pain hj level reassessed. Patient is alert, oriented x 3, equal unlabored respirations, skin warm/dry/pink. stil with occasional hiccups; denies N/V; able to tolerate oral contrast;. 18:21 Reassessment: Patient and/or family updated on plan of care and expected duration. Pain hj level reassessed. Patient is alert, oriented x 3, equal unlabored respirations, skin warm/dry/pink. awaiting CT scan test; with occasional hiccups still;. 18:38 Reassessment: Patient and/or family updated on plan of care and expected duration. Pain hj level reassessed. Patient is alert, oriented x 3, equal unlabored respirations, skin warm/dry/pink. surgeon in the room with family;. 19:30 Reassessment: Patient appears in no apparent distress at this time. Patient and/or jd3 family updated on plan of care and expected duration. Pain level reassessed. Patient is alert, oriented x 3, equal unlabored respirations, skin warm/dry/pink. 20:30 Reassessment: Patient appears in no apparent distress at this time. Patient and/or jd3 family updated on plan of care and expected duration. Pain level reassessed. Patient is alert, oriented x 3, equal unlabored respirations, skin warm/dry/pink. 21:02 Reassessment: Patient appears in no apparent distress at this time. Patient and/or jd3 family updated on plan of care and expected duration. Pain level reassessed. Patient is alert, oriented x 3, equal unlabored respirations, skin warm/dry/pink. Patient states feeling better. 21:13 Reassessment: report given to nurse Johanna for room 407. j Vital Signs: 16:13 BP 162 / 87; Pulse 89; Resp 18; Temp 98.5(O); Pulse Ox 95% on R/A; Weight 99.79 kg; hj Height 5 ft. 10 in. (177.80 cm); 17:19 BP 144 / 79; Pulse 89; Resp 18; Pulse Ox 95% on R/A; hj 18:22 BP 152 / 65; Pulse 89; Resp 18; Pulse Ox 96% on R/A; hj 18:38 BP 148 / 76; Pulse 87; Resp 18; Pulse Ox 96% on R/A; hj 21:03 BP 119 / 66; Pulse 99; Resp 17 S; Pulse Ox 95% on R/A; jd3 16:13 Body Mass Index 31.57 (99.79 kg, 177.80 cm) ED Course: 16:07 Patient arrived in ED. iw 16:08 Woody Shah, RN is Primary Nurse. hj 16:11 Triage completed. hj 16:13 Arm band placed on left wrist. hj 16:13 Patient has correct armband on for positive identification. Placed in gown. Bed in low hj position. Call light in reach. Side rails up X 1. Adult w/ patient. 16:14 Angelo Quintanilla MD is Attending Physician. rn 16:48 XRAY Chest (1 view) In Process Unspecified. EDMS 16:55 Missed attempt(s): 22 gauge in right antecubital area. Bleeding controlled, band aid aa5 applied, catheter tip intact. 16:55 Initial lab(s) drawn, by me, sent to lab. aa5 17:00 Missed attempt(s): 22 gauge in right forearm. Bleeding controlled, band aid applied, aa5 catheter tip intact. 17:19 Inserted saline lock: 22 gauge in right antecubital area, using aseptic technique. iw 18:20 Get Lima MD is Hospitalizing Provider. rn 19:35 CT Abd/Pelvis - W/Contrast In Process Unspecified. EDMS 19:35 CT completed. Patient tolerated procedure well. Patient moved back from CT. mw3 20:50 NGT: inserted 14 Fr. via right nare. verified return of gastric contents, to bb intermittent suction. Returned gastric contents. Patient tolerated well. 21:14 No provider procedures requiring assistance completed. Patient admitted, IV remains in jd3 place. Administered Medications: 17:16 Drug: NS 0.9% 1000 ml Route: IV; Rate: 1000 ml; Site: right antecubital; hj 18:23 Follow up: IV Status: Infusion continued hj 17:16 Drug: Reglan 10 mg Route: IVP; Site: right antecubital; hj 18:23 Follow up: Response: No adverse reaction hj Output: 21:04 Gastric: 3000ml (NGT); Total: 3000ml. jd3 Outcome: 18:20 Decision to Hospitalize by Provider. rn 21:14 Condition: stable jd3 21:14 Instructed on the need for admit, Demonstrated understanding of instructions. 21:41 Admitted to Med/surg accompanied by nurse, via wheelchair, room 407, with chart, Report jd3 called to Johanna TINEO 21:42 Patient left the ED. jd3 Signatures: Dispatcher [employer] EDMS Ariadne Javier RN RN bb Williams, Irene, RN RN iw Nieto, Roman, MD MD rn Calderon, Audri, RN RN aa5 Woody Shah RN RN hj Davies, Jonathon, RN RN jd3 Edie Noel mw3 Corrections: (The following items were deleted from the chart) 17:10 16:09 Presenting complaint: Patient states: "i just an abdominal surgery, today is hj started having non stop hiccups and i felt nauseous and threw up once before i came in here" denies fever, states, been days haven't had a BM; on triage, marciano on abd surgery in place, no drainage noticed; hj 18:51 16:09 Presenting complaint: Patient states: "i just had an abdominal surgery, today is hj started having non stop hiccups and i felt nauseous and threw up once before i came in here" denies fever, states, been days haven't had a BM; on triage, marciano on abd surgery in place, no drainage noticed; hj 21:13 21:02 Reassessment: Patient appears in no apparent distress at this time. Patient jd3 and/or family updated on plan of care and expected duration. Pain level reassessed. Patient is alert, oriented x 3, equal unlabored respirations, skin warm/dry/pink. jd3
--- NOTE | 2018-08-14 18:21 | EDPHYS ---
Physician Documentation [facility] Name: Omid Triplett III Age: 62 yrs Sex: Male : 1955 Arrival Date: 08/14/2018 Time: 16:07 Bed 7 Private MD: ED Physician Angelo Quintanilla HPI: 08/14 16:50 This 62 yrs old Male presents to ER via Ambulatory with complaints of hiccups rn and bloated abdomen. 16:50 The patient presents to the emergency department with nausea, vomiting. Onset: The rn symptoms/episode began/occurred yesterday. Possible causes: unknown. The symptoms are aggravated by food , The symptoms are alleviated by nothing. Severity of symptoms: At their worst the symptoms were moderate in the emergency department the symptoms are unchanged. The patient has not experienced similar symptoms in the past. The patient has been recently seen by a physician:. Reports recent hemicolectomy this week, sent home, was doing ok, returns for recurrent hiccups, vomiting, bloated abdomen, and no bowel movement for 3 days. Decreased appetite. NO sob or cough. . Historical: - Allergies: 16:12 Phenergan; hj - Home Meds: 16:50 lisinopril-hydrochlorothiazide 10-12.5 mg oral tab 1 tab once daily [Active]; [place] hj Oral [Active]; Zofran Oral [Active]; - PMHx: 16:12 Kidney stones; hj - PSHx: 16:12 Lithotripsy; hj - Immunization history:: Adult Immunizations up to date. - Social history:: Smoking status: Patient/guardian denies using tobacco, Patient/guardian denies using alcohol. - Ebola Screening: : Patient negative for fever greater than or equal to 101.5 degrees Fahrenheit, and additional compatible Ebola Virus Disease symptoms Patient denies exposure to infectious person Patient denies travel to an Ebola-affected area in the 21 days before illness onset. - Family history:: not pertinent. - Hospitalizations: : The patient was recently seen at [facility]. ROS: 16:50 Constitutional: Negative for fever, chills, and weight loss, Eyes: Negative for injury, rn pain, redness, and discharge, Neck: Negative for injury, pain, and swelling, Cardiovascular: Negative for chest pain, palpitations, and edema, Respiratory: Negative for shortness of breath, cough, wheezing, and pleuritic chest pain, Abdomen/GI: + abd bloating, + hiccups, + nausea/vomiting MS/Extremity: Negative for injury and deformity, Skin: Negative for injury, rash, and discoloration, Neuro: + generalized weakness Exam: 16:50 Constitutional: This is a well developed, well nourished patient who is awake, alert, rn and in no acute distress. Head/Face: Normocephalic, atraumatic. Eyes: Pupils equal round and reactive to light, extra-ocular motions intact. Lids and lashes normal. Conjunctiva and sclera are non-icteric and not injected. Cornea within normal limits. Periorbital areas with no swelling, redness, or edema. ENT: dry MM Respiratory: No increased work of breathing, no retractions or nasal flaring. Abdomen/GI: midline vertical surgical wound c/d/i, no erythema or warmth, no masses, + mild tenderness left abdomen, no peritoneal signs. NO hiccups during exam. Skin: Warm, dry MS/ Extremity: No cyanosis. Neuro: Awake and alert, GCS 15, Motor strength 5/5 in all extremities. Normal gait. Vital Signs: 16:13 BP 162 / 87; Pulse 89; Resp 18; Temp 98.5(O); Pulse Ox 95% on R/A; Weight 99.79 kg; hj Height 5 ft. 10 in. (177.80 cm); 17:19 BP 144 / 79; Pulse 89; Resp 18; Pulse Ox 95% on R/A; hj 18:22 BP 152 / 65; Pulse 89; Resp 18; Pulse Ox 96% on R/A; hj 18:38 BP 148 / 76; Pulse 87; Resp 18; Pulse Ox 96% on R/A; hj 21:03 BP 119 / 66; Pulse 99; Resp 17 S; Pulse Ox 95% on R/A; jd3 16:13 Body Mass Index 31.57 (99.79 kg, 177.80 cm) MDM: 16:14 Patient medically screened. rn 18:17 Differential diagnosis: Nonspecific abd pain, ileus, post op complication, atelectasis, rn pleural effusion, constipation, dehydration. Data reviewed: vital signs, nurses notes, lab test result(s), and as a result, I will admit patient. Counseling: I had a detailed discussion with the patient and/or guardian regarding: the historical points, exam findings, and any diagnostic results supporting the discharge/admit diagnosis, lab results, the need for further work-up and treatment in the hospital. Admission orders: after a detailed discussion of the patient's condition and case, the admit orders are written by me. ED course: Spoke with Dr. Baugh, requests admission to Dr. Lima, he will consult, agrees with ct abdomen to rule things out, IV fluids, and symptomatic management at this point.. 08/14 16:16 Order name: CBC with Diff; Complete Time: 17:58 rn 08/14 16:16 Order name: Basic Metabolic Panel; Complete Time: 17:58 rn 08/14 16:16 Order name: Magnesium; Complete Time: 17:59 rn 08/14 16:16 Order name: Phosphorus; Complete Time: 17:59 rn 08/14 16:16 Order name: Hepatic Function; Complete Time: 17:59 rn 08/14 16:16 Order name: Lipase; Complete Time: 17:59 rn 08/14 17:13 Order name: CBC Smear Scan; Complete Time: 17:59 [facility] 08/14 17:24 Order name: Lactate; Complete Time: 18:15 rn 08/14 20:00 Order name: CBC with Automated Diff [facility] 08/14 20:00 Order name: CBC with Automated Diff [facility] 08/14 20:00 Order name: Comprehensive Metabolic Panel [facility] 08/14 20:00 Order name: Comprehensive Metabolic Panel [facility] 08/14 20:00 Order name: Magnesium [facility] 08/14 20:00 Order name: Magnesium [facility] 08/14 16:16 Order name: IV Start; Complete Time: 17:17 rn 08/14 16:16 Order name: XRAY Chest (1 view); Complete Time: 17:22 rn 08/14 16:16 Order name: Labs collected and sent; Complete Time: 17:16 rn 08/14 16:22 Order name: CT Abd/Pelvis - W/Contrast 08/14 19:52 Order name: NG Tube: Dr. Baugh gave verbal orders for small NG tube to low int. jd3 suction.; Complete Time: 21:00 08/14 20:00 Order name: CONS Physician Consult [facility] 08/14 20:00 Order name: NPO EDMS 08/14 20:00 Order name: Phosphorus EDMS 08/14 20:00 Order name: Phosphorus EDMS 08/14 20:01 Order name: Urinalysis EDMS Administered Medications: 17:16 Drug: NS 0.9% 1000 ml Route: IV; Rate: 1000 ml; Site: right antecubital; hj 18:23 Follow up: IV Status: Infusion continued hj 17:16 Drug: Reglan 10 mg Route: IVP; Site: right antecubital; hj 18:23 Follow up: Response: No adverse reaction hj Disposition: 08/14/18 18:20 Hospitalization ordered by Get Lima for Inpatient Admission. Preliminary diagnosis are Vomiting, Dehydration, Atelectasis, Constipation, unspecified. - Bed requested for Telemetry/MedSurg (Inpatient). - Status is Inpatient Admission. jd3 - Condition is Stable. - Problem is new. - Symptoms are unchanged. UTI on Admission? No Signatures: Dispatcher [employer] EDID Ariadne Javier RN RN bb Nieto, Roman, MD MD rn Joaquin, Henry, RN RN Ruben Shannon RN RN jd3 Corrections: (The following items were deleted from the chart) 20:03 18:20 Hospitalization Ordered by Get Lima MD for Inpatient Admission. Preliminary bb diagnosis is Vomiting; Dehydration; Atelectasis; Constipation, unspecified. Bed requested for Telemetry/MedSurg (Inpatient). Status is Inpatient Admission. Condition is Stable. Problem is new. Symptoms are unchanged. UTI on Admission? No. rn 21:42 20:03 08/14/2018 18:20 Hospitalization Ordered by Get Lima MD for Inpatient jd3 Admission. Preliminary diagnosis is Vomiting; Dehydration; Atelectasis; Constipation, unspecified. Bed requested for Telemetry/MedSurg (Inpatient). Status is Inpatient Admission. Condition is Stable. Problem is new. Symptoms are unchanged. UTI on Admission? No. bb
--- NOTE | 2018-08-14 19:53 | RAD REPORT ---
EXAM DESCRIPTION: CT - Abdomen Pelvis W Contrast - 08/14/2018 7:35 pm CLINICAL HISTORY: Bloating, hiccups, abdominal distension recent right hemicolectomy COMPARISON: Pre-surgical CT study August 01 TECHNIQUE: Biphasic, helical CT imaging of the abdomen and pelvis was performed following 100 ml non -ionic IV contrast. No oral contrast given. All CT scans are performed using dose optimization technique as appropriate and may include automated exposure control or mA/KV adjustment according to patient size. FINDINGS: Lung base atelectasis with no acute finding. No pericardial effusion. The liver, spleen, and pancreas show no suspicious findings. Gallbladder and biliary tree are also wi thout suspicious finding. Symmetric renal function is seen with no hydronephrosis or suspicious renal mass. No pyelonephritis o r acute parenchymal process. No bladder abnormalities. No adrenal abnormalities. Stomach is dilated with a large volume of fluid. No gastric outlet obstruction. No gastric wall thick ening or mass. Duodenum and jejunum are also distended to dilated. Distal small bowel is decompressed . There is a gradual transition between dilated proximal small bowel and decompressed distal small priscila wel. No obstructing mass. Internal hernia is not suspected. Mechanical small bowel obstruction not pang spected. No suspicious or unexpected finding at the small bowel colon anastomosis in the right mid abdomen. No free air is present. There is a minimal quantity of free fluid present well within normal limits for the recent surgery. No abscess or other surgical complication. No mass or bulky lymphadenopathy. Pang rgical clips along the ventral abdominal soft tissues. No hernia defect. No suspicious bony findings. IMPRESSION: Delay onset postop ileus. Stomach is dilated with dilation of the proximal small bowel. Mechanical small bowel obstruction not suspected. No free air, abscess or other surgical complication. Small-bowel right colon anastomosis shows no une xpected or suspicious finding.
[2018-08-14] MEDS ORDERED: ONDANSETRON 4 MG/2 ML VIAL IV PRN (19:57)
[2018-08-14] MEDS ORDERED: ACETAMINOPHEN 650MG/RECT SUPP RECT PRN (19:57)
[2018-08-14] MEDS ORDERED: NA CHLORIDE 0.9% 1,000 ML IV SCH (20:00)
[2018-08-14] MEDS ORDERED: MORPHINE 4 MG/ML SYR IV PRN (20:00)
[2018-08-14] MEDS ORDERED: ONDANSETRON 4 MG/2 ML VIAL IV ONE (20:37)
[2018-08-14] MEDS: PIPER/TAZO/NS 3.375gm 3.375 GM/100 ML BAG IVPB SCH (22:00)
[2018-08-14] MEDS ORDERED: PIPERACIL/TAZO 3.375 GM VIAL IV ONE (23:11)
[2018-08-14] MEDS ORDERED: NA CHLORIDE 0.9% 100 ML IV ONE (23:16)
[2018-08-15] MEDS ORDERED: PIPER/TAZO/NS 3.375gm 3.375 GM/100 ML BAG IVPB SCH
[2018-08-15 01:57] VITALS: BMI 31.5
[2018-08-15 03:30] LABS: Urine Appearance CLEAR; Urine Bilirubin NEGATIVE (NEG); Urine Blood TRACE (NEG); Urine Color YELLOW; Urine Glucose NEGATIVE (NEG); Urine Protein NEGATIVE (NEG); Urine Specific Gravity >=1.030 (1.005-1.030); Urine Urobilinogen 0.2 mg/dL (0.2-1.0)
[2018-08-15 03:35] LABS: Urine Microscopic Reflex ORDER UMIC
[2018-08-15] MEDS: PIPER/TAZO/NS 3.375gm 3.375 GM/100 ML BAG IVPB SCH (04:00)
[2018-08-15] MEDS ORDERED: NA CHLORIDE 0.9% 100 ML IV ONE (04:31)
[2018-08-15 04:35] LABS: Absolute Lymphocytes (CBC) 1.3 K/uL (0.7-4.9); Absolute Monocytes 1.2 K/uL (0.1-1.3); Absolute Neutrophil 9.5 K/uL (1.8-8.0); Basophils % 0.6 % (0-1.3); Eosinophils % 0.3 % (0-4.4); Hematocrit 40.4 % (39.6-49.0); Lymphocytes % 10.5 % (15.3-44.8); MPV 8.2 fL (7.6-11.3); Monocytes % 10.1 % (3.3-12.3); RBC Red Blood Cell Count 4.94 M/uL (4.33-5.43)
[2018-08-15] MEDS ORDERED: PIPERACIL/TAZO 3.375 GM VIAL IV ONE (04:36)
[2018-08-15 04:43] LABS: Albumin 2.9 g/dL (3.4-5.0); Bilirubin Total 1.4 mg/dL (0.2-1.0); Magnesium 2.6 mg/dL (1.8-2.4); Phosphorus 4.2 mg/dL (2.5-4.9); Potassium 3.1 mmol/L (3.5-5.1); Protein, Total 6.5 g/dL (6.4-8.2)
[2018-08-15 05:38] LABS: Urine Bacteria <20 /HPF (NONE SEEN); Urine Culture Reflex Order NOT NEEDED; Urine RBC <5 /HPF (NONE SEEN)
[2018-08-15] MEDS: KCL 20 MEQ/100 mL IVPB 20 MEQ/100 ML BAG IV SCH ×3 (06:45→22:58)
[2018-08-15] MEDS: METOCLOPRAMIDE 10 MG/2mL INJ IV SCH ×2 (06:45→21:00)
[2018-08-15] MEDS ORDERED: Ringers Lactate 1,000 ML IV SCH ×2 (07:00→13:40)
--- NOTE | 2018-08-15 07:09 | P.HP ---
Certification for Inpatient Patient admitted to: Inpatient With expected LOS: >2 Midnights Patient will require the following post-hospital care: None Practitioner: I am a practitioner with admitting privileges, knowledge of patient current condition, hospital course, and medical plan of care. Services: Services provided to patient in accordance with Admission requirements found in Title 42 Section 412.3 of the Code of Federal Regulations Patient History Date of Service: 08/14/18 Reason for admission: Abdominal pain status post partial colectomy History of Present Illness: Patient is a 62-year-old gentleman who came into the hospital with abdominal pain and distension. He recently had a partial colectomy after a colonoscopy diagnosed colon cancer. After the partial colectomy patient had done well in the hospital stay and was discharged. However, in less then 48 hrs later, patient ended up back in the hospital with abdominal pain and distention. CT scan revealed patient had an ileus. There was no abdominal abscess. Patient will be admitted to the hospital and NG tube will be placed(patient had almost 2 L of bilious secretions immediately after NGT was placed). Continue on IV antibiotics. Pain control. Surgery to see the patient in the morning Allergies promethazine [From Phenergan] Allergy (Mild, Verified 08/14/18 22:43) TONGUE SWELLS Home Medications: Hydrocodone/Acetaminophen [Hydrocodone-Acetamin 7.5-325] 1 tab PO Q8H PRN Lisinopril/Hydrochlorothiazide [Lisinopril-Hctz 10-12.5 mg Tab] 1 tab PO DAILY 08/15/18 Ondansetron [Zofran (Odt)*] 1 tab PO Q6H 08/15/18 - Past Medical/Surgical History Has patient received pneumonia vaccine in the past: No Diabetic: No -: Eczema -: Hyperlipidemia -: Nephrolithiasis -: Obesity -: Seasonal allergies -: hx of cellulitis -: Benign essential Hypertension -: Venous insufficiency -: Lithotripsy feb 2018 -: Tonsillectomy 5 yrs Psychosocial/ Personal History: He is of 37 years. He has children. 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 - Family History Mother Medical History: Heart disease, Other (see notes) Notes: colon polyps Father Medical History: Heart disease, Lung disease, Cancer - Social History Smoking Status: Never smoker Alcohol use: Yes CD- Drugs: No Caffeine use: Yes Place of Residence: Home Review of Systems 10-point ROS is otherwise unremarkable Physical Examination - Vital Signs Temperature: 97.9 F Blood Pressure: 115/53 Pulse: 77 Respirations: 18 Pulse Ox (%): 90 - Physical Exam General: Alert, In no apparent distress, Oriented x3 HEENT: Atraumatic, Normocephalic, PERRLA, Other (NG tube in place) Neck: Supple, 2+ carotid pulse no bruit, Other (Thick neck) Respiratory: Clear to auscultation bilaterally, Normal air movement Cardiovascular: Regular rate/rhythm, Normal S1 S2 Gastrointestinal: No rebound, No guarding, Absent bowel sounds, Distended, Tenderness Musculoskeletal: No clubbing, No swelling, No contractures Integumentary: No rashes Neurological: Normal gait, Normal speech, Normal tone, Sensation intact, Cranial nerves 3-12 intact, Abnormal strength (4+/5) - Studies Laboratory Data (last 24 hrs) 08/14/18 16:50: Sodium 139, Potassium 3.6, BUN 16, Creatinine 0.97, Glucose 141 H, Phosphorus 4.9 D, Magnesium 2.4, Total Bilirubin 1.3 H, AST 73 H, ALT 95 H, Alkaline Phosphatase 86, Lipase 99 08/14/18 16:50: WBC 15.9 H D, Hgb 14.6, Hct 45.0, Plt Count 286 D Assessment & Plan - Problems (Diagnosis) (1) Status post partial colectomy Current Visit: Yes Status: Acute (2) Ileus Current Visit: Yes Status: Acute (3) Colon cancer Current Visit: No Status: Acute Qualifiers: Colon location: unspecified part of colon Qualified Code(s): C18.9 - Malignant neoplasm of colon, unspecified (4) Hypertension Current Visit: No Status: Chronic Qualifiers: Hypertension type: essential hypertension (5) Obstructive sleep apnea Current Visit: No Status: Chronic - Plan Plan: 1. Aggressive IV hydration 2. NG tube to low intermittent wall suction 3. Surgery consultation 4. IV antibiotics 5. Monitor electrolytes and correct any abnormalities 6. NPO 7. Monitor hemodynamics closely. Continue following labs. Hopefully, patient has significant improvement over the next 48 hrs. At this time, he will need inpatient hospitalization. 8. GI and DVT prophylaxis Discharge Plan: Home Plan to discharge in: Greater than 2 days - Advance Directives Does patient have a Living Will: No Does patient have a Durable POA for Healthcare: No - Code Status/Comfort Care Code Status Assessed: Yes Code Status: Full Code Critical Care: No Time Spent Managing PTS Care (In Minutes): 40
[2018-08-15] MEDS ORDERED: POTASSIUM CL 40 MEQ in NA CHLORIDE 0.9% 500 ML IV SCH ×5 (08:00→21:00)
[2018-08-15] MEDS: ENOXAPARIN 40 MG/0.4 ML SQ SCH (09:56)
[2018-08-15] MEDS: METRONIDAZOLE 500mg IVPB 500 MG/100 ML BAG IV SCH ×2 (09:58→16:09)
[2018-08-15] MEDS: Levofloxacin500mg IV 500 MG/100 ML BAG IV SCH (09:59)
[2018-08-15] MEDS: DIPHENHYDRAMINE 50 MG/ML VIAL IV PRN ×2 (10:58→20:53)
[2018-08-15] MEDS: NA CHLORIDE 0.9% 1,000 ML IV SCH ×3 (13:40→16:11)
--- NOTE | 2018-08-15 16:34 | P.PN ---
Subjective Date of Service: 08/15/18 Chief Complaint: Abdominal pain status post partial colectomy pt seen and examined with RN,no overnight events f/up surgery recommendations ,keep NPo for now NG tube low intermittent suction Review of Systems 10-point ROS is otherwise unremarkable Physical Examination - Vital Signs Temperature: 97.9 F Blood Pressure: 120/68 Pulse: 93 Respirations: 20 Pulse Ox (%): 93 - Physical Exam General: Alert, Oriented x3 HEENT: Atraumatic, Normocephalic, PERRLA Neck: JVD not distended Respiratory: Clear to auscultation bilaterally, Normal air movement Cardiovascular: Normal pulses, Regular rate/rhythm, Normal S1 S2 Gastrointestinal: Normal bowel sounds, Soft and benign, Non-distended Musculoskeletal: No swelling Integumentary: No rashes Neurological: Normal strength at 5/5 x4 extr - Studies Laboratory Data (last 24 hrs) 08/14/18 16:50: Sodium 139, Potassium 3.6, BUN 16, Creatinine 0.97, Glucose 141 H, Phosphorus 4.9 D, Magnesium 2.4, Total Bilirubin 1.3 H, AST 73 H, ALT 95 H, Alkaline Phosphatase 86, Lipase 99 08/14/18 16:50: WBC 15.9 H D, Hgb 14.6, Hct 45.0, Plt Count 286 D Assessment And Plan - Current Problems (Diagnosis) (1) Ileus Current Visit: Yes Status: Acute (2) Status post partial colectomy Current Visit: Yes Status: Acute (3) Colon cancer Current Visit: No Status: Acute Qualifiers: Colon location: unspecified part of colon Qualified Code(s): C18.9 - Malignant neoplasm of colon, unspecified (4) Hypertension Current Visit: No Status: Chronic Qualifiers: Hypertension type: essential hypertension (5) Obesity Current Visit: No Status: Chronic Qualifiers: Obesity type: due to excess calories Obesity classification: adult class 3 (BMI >= 40) Serious obesity comorbidity presence: with serious comorbidity Body mass index: BMI 40.0-44.9 Qualified Code(s): E66.01 - Morbid (severe) obesity due to excess calories; Z68.41 - Body mass index (BMI) 40.0-44.9, adult - Plan Assessment and plan Status post partial colectomy presenting with ilius colon cancer plan: keep NPo NG tube low intermittent suction IVF hydration pain meds IV abx surgery consulted monitor electrolytes and correct accordingly continue other home meds for other comorbidities Gi and DV tppx Discharge Plan: Home Plan to discharge in: 48 Hours
[2018-08-16] MEDS: METRONIDAZOLE 500mg IVPB 500 MG/100 ML BAG IV SCH (01:04)
[2018-08-16] MEDS: NA CHLORIDE 0.9% 1,000 ML IV SCH (04:52)
[2018-08-16] MEDS: KCL 20 MEQ/100 mL IVPB 20 MEQ/100 ML BAG IV SCH (04:56)
[2018-08-16 05:57] LABS: Absolute Lymphocytes (CBC) 1.1 K/uL (0.7-4.9); Absolute Monocytes 0.8 K/uL (0.1-1.3); Absolute Neutrophil 6.9 K/uL (1.8-8.0); Basophils % 0.5 % (0-1.3); Eosinophils % 0.9 % (0-4.4); Hematocrit 40.4 % (39.6-49.0); Lymphocytes % 12.1 % (15.3-44.8); MPV 7.8 fL (7.6-11.3); Monocytes % 9.3 % (3.3-12.3); RBC Red Blood Cell Count 4.87 M/uL (4.33-5.43)
[2018-08-16 06:11] LABS: Albumin 3.1 g/dL (3.4-5.0); Bilirubin Total 1.4 mg/dL (0.2-1.0); Potassium 3.4 mmol/L (3.5-5.1); Protein, Total 6.6 g/dL (6.4-8.2)
[2018-08-16] MEDS: Levofloxacin500mg IV 500 MG/100 ML BAG IV SCH (08:00)
[2018-08-16] MEDS ORDERED: POTASSIUM CL 40 MEQ in NA CHLORIDE 0.9% 500 ML IV SCH (09:00)
[2018-08-16] MEDS: ENOXAPARIN 40 MG/0.4 ML SQ SCH (09:37)
[2018-08-16] MEDS: D5.45NS W/KCL 20MEQ 20 MEQ/1,000 ML BAG IV SCH ×3 (10:43→23:46)
--- NOTE | 2018-08-16 12:53 | P.PN ---
Subjective Date of Service: 08/16/18 Chief Complaint: Abdominal pain status post partial colectomy Subjective: Improving (Patient feels well, no pain, nauea, passing more gas, no distention.) Physical Examination - Vital Signs Temperature: 98.2 F Blood Pressure: 137/63 Pulse: 82 Respirations: 16 Pulse Ox (%): 94 - Physical Exam General: Alert, In no apparent distress, Cooperative Gastrointestinal: Soft and benign, No ascites, No tenderness, No masses, No rebound, No guarding, Other (incision clean and dry) Assessment And Plan - Current Problems (Diagnosis) (1) Ileus Current Visit: Yes Status: Acute Plan: - continue NG tube decompression - electrolyte replacement - increase hydration IV for dehydration - serial exams - recheck labs in AM - ambulate - chew gum - continue incentive spirometry
--- NOTE | 2018-08-16 16:38 | P.PN ---
Subjective Date of Service: 08/16/18 Chief Complaint: Abdominal pain status post partial colectomy Subjective: No new changes pt seen and examined with RN,no overnight events feels better passing gas discussed with surgery viviana keep NPO for now and keep NG tube withincrease IVF hydration Review of Systems 10-point ROS is otherwise unremarkable Physical Examination - Vital Signs Temperature: 98.4 F Blood Pressure: 139/66 Pulse: 76 Respirations: 16 Pulse Ox (%): 96 - Physical Exam General: Alert, Oriented x3 HEENT: Normocephalic, PERRLA Neck: JVD not distended Respiratory: Clear to auscultation bilaterally, Normal air movement Cardiovascular: No edema, Regular rate/rhythm, Normal S1 S2 Gastrointestinal: Hypoactive, Soft and benign, Non-distended Musculoskeletal: No clubbing, No swelling Integumentary: No rashes Neurological: Normal speech, Normal strength at 5/5 x4 extr Assessment And Plan - Current Problems (Diagnosis) (1) Ileus Current Visit: Yes Status: Acute (2) Status post partial colectomy Current Visit: Yes Status: Acute (3) Colon cancer Current Visit: No Status: Acute Qualifiers: Colon location: unspecified part of colon Qualified Code(s): C18.9 - Malignant neoplasm of colon, unspecified (4) Hypertension Current Visit: No Status: Chronic Qualifiers: Hypertension type: essential hypertension (5) Obesity Current Visit: No Status: Chronic Qualifiers: Obesity type: due to excess calories Obesity classification: adult class 3 (BMI >= 40) Serious obesity comorbidity presence: with serious comorbidity Body mass index: BMI 40.0-44.9 Qualified Code(s): E66.01 - Morbid (severe) obesity due to excess calories; Z68.41 - Body mass index (BMI) 40.0-44.9, adult - Plan Assessment and plan Status post partial colectomy presenting with ilius colon cancer plan: keep NPo NG tube IVF hydration pain meds surgery consulted monitor electrolytes and correct accordingly continue other home meds for other comorbidities Gi and DV tppx Discharge Plan: Home Plan to discharge in: 48 Hours
--- NOTE | 2018-08-16 17:24 | CON ---
Date of Consultation: 08/14/2018 Brief History Of Present Illness: The patient is a 62-year-old man known to me from previous admissi on, who came to the hospital with abdominal pain and distention, status post right hemicolectomy for colon cancer. He was discharged the day before with tolerating p.o., ambulatory, and having bowel fu nction with minimal pain. However, over the course of the evening, he developed some minimal abdomin al distention, some nausea and vomiting, and persistent hiccups. He came back to the emergency room with the above-stated complaints and a CT scan revealed he had a postoperative proximal ileus with no other acute findings. He states his feeling was that he did not have significant increase in pain. Past Medical History: Significant for eczema, hyperlipidemia, nephrolithiasis, obesity, seasonal all ergies, cellulitis, benign hypertension, venous insufficiency. Past Surgical History: Right hemicolectomy with primary anastomosis, lithotripsy, and tonsillectomy. Social History: He is , has children. 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 Denies smoking, alcohol, or recr eational drug use. Family History: Colon polyps, heart disease and lung disease in the father as well as cancer. Review of Systems: Ten-point review of systems other than HPI, denies. Allergies: TO PHENERGAN. Home Medications: Include [place], lisinopril, and Zofran. Physical Examination: Vital Signs: At the time of my examination, his BMI is 31.6. His blood pressure was 120/63, pulse 1 01, respiratory rate 18, temperature 98.2. General: He is awake, alert, and oriented. Psychiatric: Appropriate conversive. HEENT: Normocephalic. Sclerae icteric. Mucous membranes are moist. Oropharynx clear. Neck: Supple. No JVD. Chest: Normal expansion and excursion. Cardiovascular: Regular rate and rhythm. During the time of my examination, it came down from 101 t o 97. Abdomen: Soft with mild epigastric fullness and tenderness to palpation. No rebound. No gua rding. No focal peritonitis. Incision was clean and dry. [place] in place. Extremities: No clubbing, cyanosis, or edema. Skin: Warm and dry. Laboratory Data: Reveals a white blood cell count of 15.9, hemoglobin 14.6, hematocrit of 40.0, plat elet count of 286, neutrophils 87%. His sodium is 139, potassium 3.6, chloride 99, carbon dioxide 32 , BUN 16, creatinine 0.97, glucose is 141, lactic acid 1.5, phosphorus is 4.9, magnesium 2.4, total b ilirubin 1.3, direct component 0.5, AST 73, ALT 95. His lipase is 99. He had an imaging performed, which included a chest x-ray which was officially read as limited shallow inspiratory examination. N o pneumonia seen. Lung base atelectasis is likely. He had a CT scan for the abdomen and pelvis as w ell, which was officially read as delayed onset postop ileus. Stomach is dilated with dilatation of the proximal small bowel mechanical bowel obstruction, not suspected. No free air abscess or other s urgical complications. Small bowel right colon anastomosis shows no unexpected or suspicious finding s. Assessment And Plan: This is a 62-year-old male, who presents with signs and symptoms of postoperati ve ileus with a predominantly gastric proximal small bowel distention with smooth tapering. 1.IV fluid hydration. 2.NG tube decompression. 3.Serial abdominal exams. 4.Antibiotic coverage. 5.I will follow along with you. Thank you for this interesting consult. NISHANT/ALBERTO Voice ID: [id number] Report ID: [id number]
[2018-08-16] MEDS: DIPHENHYDRAMINE 50 MG/ML VIAL IV PRN (17:45)
[2018-08-16] MEDS: METOCLOPRAMIDE 10 MG/2mL INJ IV SCH (21:00)
[2018-08-17] MEDS: DIPHENHYDRAMINE 50 MG/ML VIAL IV PRN ×3 (01:53→22:25)
[2018-08-17] MEDS: D5.45NS W/KCL 20MEQ 20 MEQ/1,000 ML BAG IV SCH ×3 (05:46→19:10)
[2018-08-17 06:36] LABS: Absolute Lymphocytes (CBC) 1.3 K/uL (0.7-4.9); Absolute Monocytes 0.6 K/uL (0.1-1.3); Absolute Neutrophil 5.1 K/uL (1.8-8.0); Basophils % 0.7 % (0-1.3); Eosinophils % 1.8 % (0-4.4); Lymphocytes % 18.4 % (15.3-44.8); MPV 7.9 fL (7.6-11.3); Monocytes % 8.1 % (3.3-12.3); RBC Red Blood Cell Count 4.82 M/uL (4.33-5.43)
[2018-08-17 06:56] LABS: Magnesium 2.6 mg/dL (1.8-2.4); Phosphorus 2.6 mg/dL (2.5-4.9); Potassium 3.7 mmol/L (3.5-5.1)
[2018-08-17] MEDS ORDERED: KCL 20 MEQ/100 mL IVPB 20 MEQ/100 ML BAG IV SCH (08:00)
[2018-08-17] MEDS: ENOXAPARIN 40 MG/0.4 ML SQ SCH (08:44)
--- NOTE | 2018-08-17 08:47 | RAD REPORT ---
EXAM DESCRIPTION: RAD - Abdomen 1 View (KUB) - 08/17/2018 8:21 am CLINICAL HISTORY: SBO Pain COMPARISON: Abdomen 1 View (KUB) dated 07/07/2018; Abdomen 1 View (KUB) dated 03/23/2018; Abdomen 1 Vi ew (KUB) dated 03/17/2018; Abdomen 1 View (KUB) dated 03/09/2018; Abdomen Pelvis W Contrast dated FINDINGS: Several organized loops of small bowel are seen in the left abdomen suggesting partial mec hanical small-bowel obstruction. Degree of small bowel dilatation is mild. No evidence of pneumoperit oneum. Enteric tube is present in the stomach.
--- NOTE | 2018-08-17 10:28 | P.PN ---
Subjective Date of Service: 08/17/18 Chief Complaint: Abdominal pain status post partial colectomy Subjective: Improving (Patient has no pain, and taking minimal pain meds, no distention, had a large loose BM today, continues to pass gas, ambulatory.) Physical Examination - Vital Signs Temperature: 98.2 F Blood Pressure: 123/58 Pulse: 71 Respirations: 18 Pulse Ox (%): 96 - Physical Exam General: Alert, In no apparent distress, Cooperative HEENT: Mucous membr. moist/pink Gastrointestinal: Soft and benign, Non-distended, No ascites, No tenderness, No masses, No rebound, No guarding, Other (incision clean with marciano in place) Assessment And Plan - Current Problems (Diagnosis) (1) Ileus Current Visit: Yes Status: Acute Plan: - continue NG tube decompression - electrolyte replacement - continue hydration IV for dehydration - serial exams - recheck labs in AM - ambulate - chew gum - continue incentive spirometry - will consider clamp trial in AM
--- NOTE | 2018-08-17 17:32 | P.PN ---
Subjective Date of Service: 08/17/18 Primary Care Provider: Surgery-Dr. Baugh Chief Complaint: Abdominal pain status post partial colectomy Subjective: Improving Physical Examination - Vital Signs Temperature: 98.2 F Blood Pressure: 123/58 Pulse: 71 Respirations: 18 Pulse Ox (%): 96 - Physical Exam General: Alert, In no apparent distress, Oriented x3, Cooperative HEENT: Atraumatic Neck: Supple Respiratory: Clear to auscultation bilaterally, Normal air movement Cardiovascular: Normal pulses, Regular rate/rhythm Gastrointestinal: Normal bowel sounds, Hypoactive, Non-distended, No tenderness , No masses, No rebound, No guarding, Other (post surgical changes to the abdomen noted) Musculoskeletal: No erythema, No tenderness, No warmth Neurological: Normal speech, Normal strength at 5/5 x4 extr, Normal tone, Normal affect - Studies Medications List Reviewed: Yes Assessment & Plan Discharge Plan: Home Plan to discharge in: Greater than 2 days Physician Review Additional Text: Impression: Ileus status post partial colectomy for colon cancer Hypertension Plan: Patient continues to improve. NG tube in place. Case discussed with surgery. Will continue with NG tube. Patient remains NPO. Surgery will consider clamping NG tube tomorrow with improvement. If stable patient can likely start clear liquid diet tomorrow. Encourage ambulation. Encourage incentive spirometer. Continue DVT prophylaxis-Lovenox. Will provide medication for blood pressure control. Will continue to reassess. Will recheck tomorrow. Time Spent Managing Pts Care (In Minutes): 55
[2018-08-18] MEDS: D5.45NS W/KCL 20MEQ 20 MEQ/1,000 ML BAG IV SCH ×4 (02:09→20:34)
[2018-08-18 06:36] LABS: Absolute Lymphocytes (CBC) 1.1 K/uL (0.7-4.9); Absolute Monocytes 0.5 K/uL (0.1-1.3); Absolute Neutrophil 4.2 K/uL (1.8-8.0); Basophils % 0.4 % (0-1.3); Eosinophils % 2.8 % (0-4.4); Hematocrit 38.2 % (39.6-49.0); Lymphocytes % 18.6 % (15.3-44.8); MPV 7.8 fL (7.6-11.3); Monocytes % 8.6 % (3.3-12.3); RBC Red Blood Cell Count 4.58 M/uL (4.33-5.43)
[2018-08-18 06:41] LABS: Magnesium 2.4 mg/dL (1.8-2.4); Phosphorus 2.3 mg/dL (2.5-4.9); Potassium 3.7 mmol/L (3.5-5.1)
[2018-08-18] MEDS ORDERED: KCL 20 MEQ/100 mL IVPB 20 MEQ/100 ML BAG IV SCH (09:00)
[2018-08-18] MEDS: ENOXAPARIN 40 MG/0.4 ML SQ SCH (10:10)
--- NOTE | 2018-08-18 12:59 | P.PN ---
Subjective Date of Service: 08/18/18 Primary Care Provider: Surgery-Dr. Baugh Chief Complaint: Abdominal pain status post partial colectomy Subjective: Improving, Other (Patient did report loose bowel movement) Physical Examination - Vital Signs Temperature: 98.0 F Blood Pressure: 145/81 Pulse: 77 Respirations: 18 Pulse Ox (%): 96 - Physical Exam General: Alert, In no apparent distress, Oriented x3, Cooperative HEENT: Atraumatic Neck: Supple Respiratory: Clear to auscultation bilaterally, Normal air movement Cardiovascular: Normal pulses, Regular rate/rhythm Gastrointestinal: Normal bowel sounds, No tenderness, No masses, No rebound, No guarding Musculoskeletal: No erythema, No tenderness, No warmth Neurological: Normal speech, Normal strength at 5/5 x4 extr, Normal tone, Normal affect - Studies Medications List Reviewed: Yes Assessment & Plan Discharge Plan: Home Plan to discharge in: Greater than 2 days Physician Review Additional Text: Impression: Ileus status post partial colectomy for colon cancer Hypertension Plan: Ileus status post partial colectomy for colon cancer: Case discussed with surgery. Patient will be given a clamp trial. If successful patient will start clear liquid diet. Encourage ambulation. Encourage incentive spirometer. Continue DVT prophylaxis. Will continue to monitor closely. Hypertension: Continue medication Time Spent Managing Pts Care (In Minutes): 55
[2018-08-18] MEDS ORDERED: FEXOFENADINE 180 MG TAB PO PRN (22:18)
[2018-08-19] MEDS: D5.45NS W/KCL 20MEQ 20 MEQ/1,000 ML BAG IV SCH ×4 (03:45→18:49)
[2018-08-19 06:12] LABS: Absolute Lymphocytes (CBC) 1.4 K/uL (0.7-4.9); Absolute Monocytes 0.6 K/uL (0.1-1.3); Absolute Neutrophil 5.3 K/uL (1.8-8.0); Basophils % 0.6 % (0-1.3); Eosinophils % 2.1 % (0-4.4); Hematocrit 39.9 % (39.6-49.0); Lymphocytes % 18.1 % (15.3-44.8); MPV 7.8 fL (7.6-11.3); Monocytes % 8.4 % (3.3-12.3); RBC Red Blood Cell Count 4.87 M/uL (4.33-5.43)
[2018-08-19 06:36] LABS: BUN Blood Urea Nitrogen 9 mg/dL (7-18); Bicarbonate 26 mmol/L (21-32); Glucose Level 117 mg/dL (74-106); Magnesium 2.2 mg/dL (1.8-2.4); Phosphorus 2.1 mg/dL (2.5-4.9); Potassium 3.6 mmol/L (3.5-5.1); Sodium Level 140 mmol/L (136-145)
[2018-08-19] MEDS: POTASS/SODIUM PHOSPHATE 1 PKT POWD.PACK PO SCH ×3 (08:08→12:03)
[2018-08-19] MEDS: FEXOFENADINE 180 MG TAB PO SCH (08:09)
[2018-08-19] MEDS: ENOXAPARIN 40 MG/0.4 ML SQ SCH (08:09)
[2018-08-19] MEDS: ENSURE CLEAR 200 ML CAN PO SCH ×3 (09:00→21:00)
[2018-08-19] MEDS ORDERED: POTASS/SODIUM PHOSPHATE 1 PKT POWD.PACK PO SCH (09:00)
--- NOTE | 2018-08-19 09:03 | P.PN ---
Subjective Date of Service: 08/19/18 Primary Care Provider: Surgery-Dr. Baugh Chief Complaint: Abdominal pain status post partial colectomy Subjective: Improving (Passing gas, no pain, tolerated clears yesterday after NG tube removal, ambulatory,no nausea, no hiccups, no emesis.) Physical Examination - Vital Signs Temperature: 98.0 F Blood Pressure: 138/79 Pulse: 82 Respirations: 18 Pulse Ox (%): 96 - Physical Exam General: Alert, In no apparent distress, Cooperative Respiratory: Other (IS >3000) Gastrointestinal: Soft and benign, Non-distended, No ascites, No tenderness, No masses, No rebound, No guarding, Other (incision clean with marciano in place, no drainage) - Studies Medications List Reviewed: Yes Assessment And Plan - Current Problems (Diagnosis) (1) Ileus Current Visit: Yes Status: Acute Plan: - electrolyte replacement - DC hydration IV fluids for dehydration - serial exams - ambulate - chew gum - continue incentive spirometry - DC home soon if PO soft tolerated - Dr. Strong covering until wednesday Physician Review Additional Text: Impression: Ileus status post partial colectomy for colon cancer Hypertension Plan: Ileus status post partial colectomy for colon cancer: Case discussed with surgery. Patient will be given a clamp trial. If successful patient will start clear liquid diet. Encourage ambulation. Encourage incentive spirometer. Continue DVT prophylaxis. Will continue to monitor closely. Hypertension: Continue medication
[2018-08-19] MEDS: FLUTICASONE 50MCG NASAL SPRAY NAS SCH ×2 (09:23→21:15)
--- NOTE | 2018-08-19 14:46 | P.PN ---
Subjective Date of Service: 08/19/18 Primary Care Provider: Surgery-Dr. Baugh Chief Complaint: Abdominal pain status post partial colectomy Subjective: Improving Physical Examination - Vital Signs Temperature: 97.8 F Blood Pressure: 144/85 Pulse: 83 Respirations: 18 Pulse Ox (%): 99 - Physical Exam General: Alert, In no apparent distress, Oriented x3, Cooperative HEENT: Atraumatic Neck: Supple Respiratory: Clear to auscultation bilaterally, Normal air movement Cardiovascular: Normal pulses, Regular rate/rhythm Gastrointestinal: Normal bowel sounds, Soft and benign, Non-distended, No masses , No rebound, No guarding Musculoskeletal: No erythema, No tenderness, No warmth Integumentary: No tenderness/swelling, No erythema, No warmth, No cyanosis Neurological: Normal speech, Normal strength at 5/5 x4 extr, Normal tone, Normal affect - Studies Medications List Reviewed: Yes Assessment & Plan Discharge Plan: Home Plan to discharge in: 24 Hours Physician Review Additional Text: Impression: Ileus status post partial colectomy for colon cancer Hypertension Chronic allergic rhinitis Plan: Ileus status post partial colectomy for colon cancer: Case discussed with surgery. Patient has been doing well. Diet will be advanced to soft diet. Encourage ambulation. Anticipate discharge in the next 24 hr if improved and stable. Encourage incentive spirometer. Patient maintains DVT prophylaxis. Hypertension: Continue medication Chronic allergic rhinitis: Continue with Flonase and Carolina. Time Spent Managing Pts Care (In Minutes): 55
[2018-08-19 22:55] VITALS: O2SAT 98
[2018-08-20] MEDS: D5.45NS W/KCL 20MEQ 20 MEQ/1,000 ML BAG IV SCH (00:53)
[2018-08-20 04:41] LABS: Absolute Lymphocytes (CBC) 1.4 K/uL (0.7-4.9); Absolute Monocytes 0.6 K/uL (0.1-1.3); Absolute Neutrophil 4.6 K/uL (1.8-8.0); Basophils % 0.7 % (0-1.3); Eosinophils % 1.6 % (0-4.4); Hematocrit 38.9 % (39.6-49.0); Lymphocytes % 20.5 % (15.3-44.8); Monocytes % 8.4 % (3.3-12.3); RBC Red Blood Cell Count 4.74 M/uL (4.33-5.43)
[2018-08-20 05:01] LABS: BUN Blood Urea Nitrogen 6 mg/dL (7-18); Bicarbonate 23 mmol/L (21-32); Glucose Level 122 mg/dL (74-106); Phosphorus 2.3 mg/dL (2.5-4.9); Potassium 3.6 mmol/L (3.5-5.1); Sodium Level 139 mmol/L (136-145)
[2018-08-20] MEDS ORDERED: POTASS/SODIUM PHOSPHATE 1 PKT POWD.PACK PO SCH (08:00)
[2018-08-20 08:45] VITALS: BP 129/70; TEMP 97.6
[2018-08-20] MEDS: FLUTICASONE 50MCG NASAL SPRAY NAS SCH (08:46)
[2018-08-20] MEDS: FEXOFENADINE 180 MG TAB PO SCH (08:46)
[2018-08-20] MEDS: ENOXAPARIN 40 MG/0.4 ML SQ SCH (08:46)
[2018-08-20] MEDS: ENSURE CLEAR 200 ML CAN PO SCH (08:54)
--- NOTE | 2018-08-20 09:21 | P.DS ---
Admission Date: 08/14/18 Discharge Date: 08/20/18 Primary Care Provider: Surgery-Dr. Baugh Disposition: ROUTINE DISCHARGE Discharge Condition: GOOD Reason for Admission: Abdominal pain status post partial colectomy Consultations: Surgery-Dr. Baugh Procedures: CT scan: FINDINGS: Lung base atelectasis with no acute finding. No pericardial effusion. The liver, spleen, and pancreas show no suspicious findings. Gallbladder and biliary tree are also without suspicious finding. Symmetric renal function is seen with no hydronephrosis or suspicious renal mass. No pyelonephritis or acute parenchymal process. No bladder abnormalities. No adrenal abnormalities. Stomach is dilated with a large volume of fluid. No gastric outlet obstruction. No gastric wall thickening or mass. Duodenum and jejunum are also distended to dilated. Distal small bowel is decompressed. There is a gradual transition between dilated proximal small bowel and decompressed distal small bowel. No obstructing mass. Internal hernia is not suspected. Mechanical small bowel obstruction not suspected. No suspicious or unexpected finding at the small bowel colon anastomosis in the right mid abdomen. No free air is present. There is a minimal quantity of free fluid present well within normal limits for the recent surgery. No abscess or other surgical complication. No mass or bulky lymphadenopathy. Surgical clips along the ventral abdominal soft tissues. No hernia defect. No suspicious bony findings. IMPRESSION: Delay onset postop ileus. Stomach is dilated with dilation of the proximal small bowel. Mechanical small bowel obstruction not suspected. No free air, abscess or other surgical complication. Small-bowel right colon anastomosis shows no unexpected or suspicious finding. Impression: Ileus status post partial colectomy for colon cancer Hypertension Chronic allergic rhinitis Brief History of Present Illness: 62-year-old male presented to emergency room with abdominal pain and distention. Patient had recent partial colectomy for colon cancer. Patient found to have ileus. Patient was admitted for treatment. Hospital Course: Patient presented with abdominal pain and distention. Patient found to have ileus. Patient with recent partial colectomy for colon cancer. Patient was seen and evaluated by surgery. No surgical intervention was required. During the course of his stay patient required NG tube and IV fluids. Patient improved during the course of his stay. Ileus resolved. At discharge he is able to tolerate his diet. No significant abdominal pain or distention noted. Patient has had multiple bowel movements. At discharge patient will continue with a soft diet. Encourage incentive spirometer. Recommend to follow up with surgery within 1 week to follow up this hospitalization and to followup with his postsurgical care. Patient with hypertension. Patient will continue with his medication- lisinopril hydrochlorothiazide 10/12.5 mg daily. Recommend to maintain blood pressures less 150/80. Further adjustment can be done by his PCP. Patient with chronic allergic rhinitis. Patient may continue with Carolina 180 mg daily and Flonase 1 spray per nostril twice. Vital Signs/Physical Exam: Temp Pulse Resp BP Pulse Ox 97.6 F 86 16 129/70 95 08/20/18 08:00 08/20/18 08:00 08/20/18 08:00 08/20/18 08:00 08/20/18 08:00 General: Alert, In no apparent distress, Oriented x3, Cooperative HEENT: Atraumatic Neck: Supple Respiratory: Clear to auscultation bilaterally, Normal air movement Cardiovascular: Normal pulses, Regular rate/rhythm Gastrointestinal: Normal bowel sounds, Soft and benign, Non-distended, No ascites, No tenderness, No masses, No rebound, No guarding Musculoskeletal: No erythema, No tenderness, No warmth Integumentary: No tenderness/swelling, No erythema, No warmth, No cyanosis Neurological: Normal speech, Normal strength at 5/5 x4 extr, Normal tone, Normal affect Laboratory Data at Discharge: WBC 6.7 K/uL (4.3-10.9) 08/20/18 04:02 Hgb 13.0 g/dL (13.6-17.9) L 08/20/18 04:02 Hct 38.9 % (39.6-49.0) L 08/20/18 04:02 Plt Count 226 K/uL (152-406) 08/20/18 04:02 Sodium 139 mmol/L (136-145) 08/20/18 04:02 Potassium 3.6 mmol/L (3.5-5.1) 08/20/18 04:02 BUN 6 mg/dL (7-18) L 08/20/18 04:02 Creatinine 0.74 mg/dL (0.55-1.3) 08/20/18 04:02 Glucose 122 mg/dL (74-106) H 08/20/18 04:02 Phosphorus 2.3 mg/dL (2.5-4.9) L 08/20/18 04:02 Magnesium 2.0 mg/dL (1.8-2.4) 08/20/18 04:02 Total Bilirubin 1.4 mg/dL (0.2-1.0) H 08/16/18 05:16 AST 134 U/L (15-37) H 08/16/18 05:16 ALT 199 U/L (12-78) H 08/16/18 05:16 Alkaline Phosphatase 84 U/L (45-117) 08/16/18 05:16 Lipase 99 U/L (73-393) 08/14/18 16:50 Home Medications: Hydrocodone/Acetaminophen [Hydrocodone-Acetamin 7.5-325] 1 tab PO Q8H PRN Lisinopril/Hydrochlorothiazide [Lisinopril-Hctz 10-12.5 mg Tab] 1 tab PO DAILY 08/15/18 Ondansetron [Zofran (Odt)*] 1 tab PO Q6H 08/15/18 Fexofenadine HCl [Carolina Allergy] 180 mg PO DAILY #30 tablet 08/20/18 Fluticasone [Flonase 50MCG Nasal [place]*] 1 sprays YOLANDE BID #1 btl 08/20/18 New Medications: Fexofenadine HCl [Carolina Allergy] 180 mg PO DAILY #30 tablet Fluticasone [Flonase 50MCG Nasal Hope*] 1 sprays YOLANDE BID #1 btl Patient Discharge Instructions: 1. Patient will follow up with surgery within 1 week. 2. Patient presented with abdominal pain and distention. Patient found to have ileus. Patient with recent partial colectomy for colon cancer. Patient was seen and evaluated by surgery. No surgical intervention was required. During the course of his stay patient required NG tube and IV fluids. Patient improved during the course of his stay. Ileus resolved. At discharge he is able to tolerate his diet. No significant abdominal pain or distention noted. Patient has had multiple bowel movements. At discharge patient will continue with a soft diet. Encourage incentive spirometer. Recommend to follow up with surgery within 1 week to follow up this hospitalization and to followup with his postsurgical care. 3. Patient with hypertension. Patient will continue with his medication-lisinopril hydrochlorothiazide 10/12.5 mg daily. Recommend to maintain blood pressures less 150/80. Further adjustment can be done by his PCP. 4. Patient with chronic allergic rhinitis. Patient may continue with Carolina 180 mg daily and Flonase 1 spray per nostril twice. Diet: GI soft diet Activity: No lifting more than 10 lbs Time spent managing pt's care (in minutes): 55
== END 2018-08-20 10:24 | disposition home or self-care (01) | DRG 389 ==
LOC: ER 16:06 → ERHOLD 20:10 → 4TH 21:16
PROVIDERS: ADMIT Hospitalist; ATTEND Family Medicine
PROC: 0D9670Z Drainage of Stomach with Drainage Device, Via Natural or Artificial Opening (ICD-10-PCS; principal; 2018-08-14)
DX: K91.30 Postprocedural intestinal obstruction, unspecified as to partial versus complete (principal); C18.9 Malignant neoplasm of colon, unspecified; Y83.8 Other surgical procedures as the cause of abnormal reaction of the patient, or of later complication, without mention of misadventure at the time of the procedure; Y92.019 Unspecified place in single-family (private) house as the place of occurrence of the external cause; I10 Essential (primary) hypertension; E78.5 Hyperlipidemia, unspecified; G47.33 Obstructive sleep apnea (adult) (pediatric); E66.01 Morbid (severe) obesity due to excess calories; Z68.31 Body mass index [BMI] 31.0-31.9, adult; J30.89 Other allergic rhinitis
CPT/HCPCS: 36415; 71045; 74018; 74177; 80048; 80053; 80076; 81003; 81015; 83605; 83690; 83735; 84100; 84132; 85025; 96361; 96374; 99285; J1650; J2405; J2543; J2765; J7030; Q9967

== ENCOUNTER 2019-06-15 13:54 | Emergency (ER) | payer OTHER ==
[2019-06-15 14:32] LABS: Urine Blood 2+ (NEG); Urine Glucose NEGATIVE (NEG); Urine Protein NEGATIVE (NEG); Urine pH 5.5 (5.0-7.0)
[2019-06-15 14:42] LABS: Urine Bacteria NONE SEEN /HPF (NONE SEEN); Urine Culture Reflex Order NOT NEEDED
[2019-06-15 14:43] LABS: Basophils % 0.4 % (0-1.3); Hematocrit 44.2 % (39.6-49.0); Lymphocytes % 11.7 % (15.3-44.8); MPV 7.6 fL (7.6-11.3); RBC Red Blood Cell Count 4.93 M/uL (4.33-5.43)
--- NOTE | 2019-06-15 15:01 | RAD REPORT ---
EXAM DESCRIPTION: CT - Stone Protocol - 06/15/2019 2:38 pm CLINICAL HISTORY: Abdominal pain. Right flank pain COMPARISON: July 2018 TECHNIQUE: Computed axial tomography of the abdomen pelvis was obtained without oral or IV contrast. Lack of IV and oral contrast limits evaluation of solid organs, bowel, and vessels. Coronal reformat kandice images were obtained and reviewed. All CT scans are performed using dose optimization technique as appropriate and may include automated exposure control or mA/KV adjustment according to patient size. FINDINGS: Small right pleural effusion. Mild right lower lobe opacities. Bilateral small renal calculi. No hydronephrosis. A ureteral calculus is not seen. A bladder calculus is not present. Small left renal cyst Right juvencio colectomy. The liver, spleen, pancreas and adrenals appear grossly normal There is no evidence of diverticulitis. Small inguinal hernias contain fat IMPRESSION: Bilateral nonobstructing renal calculi Small right pleural effusion. Mild right lower lobe opacities probably pneumonia
[2019-06-15] MEDS ORDERED: levoFLOXacin 750 MG TAB ONE (15:24)
[2019-06-15 15:33] LABS: Bilirubin Direct 0.5 mg/dL (0-0.2); Bilirubin Total 1.2 mg/dL (0.2-1.0); Potassium 3.5 mmol/L (3.5-5.1); Protein, Total 7.3 g/dL (6.4-8.2)
--- NOTE | 2019-06-15 15:46 | EDPHYS ---
Physician Documentation [facility] Name: Omid Triplett III Age: 63 yrs Sex: Male : 1955 Arrival Date: 06/15/2019 Time: 14:05 Bed 30 Private MD: ED Physician Angelo Quintanilla HPI: 06/15 15:41 This 63 yrs old Male presents to ER via Ambulatory with complaints of Flank rn Pain, Flu Symptoms. 15:41 The patient complains of pain in the right mid back. The pain does not radiate. Onset: rn The symptoms/episode began/occurred yesterday. Modifying factors: The symptoms are alleviated by nothing. the symptoms are aggravated by nothing. Associated signs and symptoms: Pertinent positives: chills. Severity of pain: At its worst the pain was mild in the emergency department the pain has improved. The patient has not experienced similar symptoms in the past. Reports right sided pain, brief, thought it was from lifting or moving heavy objects, + chills, no objective fever. Also noticed darker urine and has hx of kidney stones. No vomiting/chest pain/abd pain/diarrhea. . Historical: - Allergies: 14:16 Phenergan; sv - Home Meds: 14:16 lisinopril-hydrochlorothiazide 10-12.5 mg Oral tab 1 tab once daily [Active]; sv - PMHx: 14:16 Kidney stones; Hypertension; Colon cancer; sv - PSHx: 14:16 Lithotripsy; ascending colon removed; Appendectomy; sv - Immunization history:: Adult Immunizations unknown. - Coronavirus screen:: The patient has NOT traveled to [place], [place], or [place] in the past 14 days. Proceed with normal triage process as indicated. - Family history:: not pertinent. - Social history:: Smoking status: unknown. - Hospitalizations: : No recent hospitalization is reported. - Ebola Screening: : No symptoms or risks identified at this time. ROS: 15:41 Constitutional: + chills Eyes: Negative for injury, pain, redness, and discharge, Neck: rn Negative for injury, pain, and swelling, Cardiovascular: Negative for chest pain, palpitations, and edema, Respiratory: Negative for shortness of breath, cough, wheezing, and pleuritic chest pain, Abdomen/GI: Negative for abdominal pain, nausea, vomiting, diarrhea, and constipation, MS/Extremity: Negative for injury and deformity, Skin: Negative for injury, rash, and discoloration, Neuro: Negative for headache, weakness, numbness, tingling, and seizure. Exam: 15:41 Constitutional: This is a well developed, well nourished patient who is awake, alert, rn and in no acute distress. Head/Face: Normocephalic, atraumatic. ENT: MMM, no oral swelling or exudate Neck: Trachea midline, no thyromegaly or masses palpated, and no cervical lymphadenopathy. Supple, full range of motion without nuchal rigidity, or vertebral point tenderness. No Meningismus. Respiratory: No increased work of breathing, no retractions or nasal flaring. Abdomen/GI: soft, non-tender Skin: Warm, dry MS/ Extremity: Pulses equal, no cyanosis. Neuro: Awake and alert, GCS 15 Vital Signs: 14:16 BP 146 / 89; Pulse 93; Resp 18; Temp 98.2; Pulse Ox 96% ; Height 5 ft. 11 in. (180.34 sv cm); Pain 0/10; 15:22 BP 144 / 73; Pulse 87; Resp 16; Pulse Ox 97% ; sv 15:55 BP 132 / 74; Pulse 82; Resp 16; Pulse Ox 99% ; sv MDM: 14:13 Patient medically screened. rn 15:41 Differential diagnosis: nephrolithiasis, UTI, flu, pneumonia. Data reviewed: vital rn signs, nurses notes, lab test result(s), radiologic studies, CT scan, and as a result, I will discharge patient. Counseling: I had a detailed discussion with the patient and/or guardian regarding: the historical points, exam findings, and any diagnostic results supporting the discharge/admit diagnosis, radiology results, the need for outpatient follow up, to return to the emergency department if symptoms worsen or persist or if there are any questions or concerns that arise at home. Special discussion: I discussed with the patient/guardian in detail that at this point there is no indication for admission to the hospital. It is understood, however, that if the symptoms persist or worsen the patient needs to return immediately for re-evaluation. 06/15 14:12 Order name: Urine Dipstick--Ancillary (enter results); Complete Time: 15:11 eb 06/15 14:20 Order name: Urine Microscopic Only; Complete Time: 15:11 rn 06/15 14:20 Order name: Urine Culture rn 06/15 14:20 Order name: Basic Metabolic Panel; Complete Time: 15:38 rn 06/15 14:20 Order name: CBC with Diff; Complete Time: 15: rn 06/15 14:20 Order name: Creatinine for Radiology; Complete Time: 15: 06/15 14:20 Order name: Hepatic Function; Complete Time: 15:38 rn 06/15 14:20 Order name: Lipase; Complete Time: 15: rn 06/15 14:20 Order name: IV Saline Lock; Complete Time: 14:42 rn 06/15 14:20 Order name: Labs collected and sent; Complete Time: 14: rn 06/15 14:20 Order name: CT Stone Protocol; Complete Time: 15: 06/15 14:20 Order name: Flu; Complete Time: 15: 06/15 14:20 Order name: [place] Screen Profile; Complete Time: 15:12 rn Administered Medications: 15:21 Drug: LevaQUIN 750 mg Route: PO; sv 15:55 Follow up: Response: No adverse reaction sv Disposition: 06/15/19 15:46 Discharged to Home. Impression: Pneumonia. - Condition is Stable. - Discharge Instructions: Community-Acquired Pneumonia, Adult. - Prescriptions for Levaquin 750 mg Oral Tablet - take 1 tablet by ORAL route once daily for 10 days; 10 tablet. - Medication Reconciliation Form, Thank You Letter, Antibiotic Education, Prescription Opioid Use form. - Follow up: Private Physician; When: As needed; Reason: Recheck today's complaints, Re-evaluation by your physician. - Problem is new. - Symptoms have improved. Signatures: Dispatcher [employer] Cristina Perez RN RN Angelo Sims MD MD internal medicine specialist: (The following items were deleted from the chart) 15:56 15:46 06/15/2019 15:46 Discharged to Home. Impression: Pneumonia. Condition is Stable. sv Forms are Medication Reconciliation Form, Thank You Letter, Antibiotic Education, Prescription Opioid Use. Follow up: Private Physician; When: As needed; Reason: Recheck today's complaints, Re-evaluation by your physician. Problem is new. Symptoms have improved. rn
--- NOTE | 2019-06-15 15:46 | ER ---
Nurse's Notes [facility] Name: Omid Triplett III Age: 63 yrs Sex: Male : 1955 Arrival Date: 06/15/2019 Time: 14:05 Bed 30 Private MD: Diagnosis: Pneumonia Presentation: 06/15 14:00 Presenting complaint: Patient states: started with flu-like symptoms on Wednesday, chills sv . Started today with a "flush feeling in my head" and right flank pain, denies urinary symptoms or hematuria. Reports dark color in urine. Transition of care: patient was not received from another setting of care. Onset of symptoms was June 12, 2019. Risk Assessment: Do you want to hurt yourself or someone else? Patient reports no desire to harm self or others. Initial Sepsis Screen: Does the patient meet any 2 criteria? No. Patient's initial sepsis screen is negative. Does the patient have a suspected source of infection? No. Patient's initial sepsis screen is negative. Care prior to arrival: Medication(s) given: Motrin. 14:00 Method Of Arrival: Ambulatory sv 14:00 Acuity: GEE 3 sv Triage Assessment: 14:00 General: Appears in no apparent distress. comfortable, well groomed, well developed, sv Behavior is calm, cooperative, appropriate for age. General: Reports "flush feeling". Pain: Denies pain. Neuro: Level of Consciousness is awake, alert, obeys commands, Oriented to person, place, time, situation, Moves all extremities. Full function Gait is steady, Speech is normal. Respiratory: Respiratory effort is even, unlabored, Respiratory pattern is regular, symmetrical. : Denies burning with urination, pain with urination. Derm: Skin is pink, warm \\T\\ dry. Historical: - Allergies: 14:16 Phenergan; sv - Home Meds: 14:16 lisinopril-hydrochlorothiazide 10-12.5 mg Oral tab 1 tab once daily [Active]; sv - PMHx: 14:16 Kidney stones; Hypertension; Colon cancer; sv - PSHx: 14:16 Lithotripsy; ascending colon removed; Appendectomy; sv - Immunization history:: Adult Immunizations unknown. - Coronavirus screen:: The patient has NOT traveled to [place], [place], or [place] in the past 14 days. Proceed with normal triage process as indicated. - Family history:: not pertinent. - Social history:: Smoking status: unknown. - Hospitalizations: : No recent hospitalization is reported. - Ebola Screening: : No symptoms or risks identified at this time. Screenin:00 Abuse screen: Denies threats or abuse. Denies injuries from another. Nutritional sv screening: No deficits noted. Tuberculosis screening: No symptoms or risk factors identified. Fall Risk None identified. Assessment: 15:21 Reassessment: Patient appears in no apparent distress at this time. No changes from sv previously documented assessment. Patient and/or family updated on plan of care and expected duration. Pain level reassessed. Patient is alert, oriented x 3, equal unlabored respirations, skin warm/dry/pink. 15:55 Reassessment: Patient appears in no apparent distress at this time. No changes from sv previously documented assessment. Patient and/or family updated on plan of care and expected duration. Pain level reassessed. Patient is alert, oriented x 3, equal unlabored respirations, skin warm/dry/pink. Vital Signs: 14:16 BP 146 / 89; Pulse 93; Resp 18; Temp 98.2; Pulse Ox 96% ; Height 5 ft. 11 in. (180.34 sv cm); Pain 0/10; 15:22 BP 144 / 73; Pulse 87; Resp 16; Pulse Ox 97% ; sv 15:55 BP 132 / 74; Pulse 82; Resp 16; Pulse Ox 99% ; sv ED Course: 14:00 Arm band placed on. sv 14:00 Patient has correct armband on for positive identification. Bed in low position. Call sv light in reach. Pulse ox on. NIBP on. Door closed. Head of bed elevated. 14:05 Patient arrived in ED. sv 14:13 Angelo Quintanilla MD is Attending Physician. rn 14:13 Cristina Clemens RN is Primary Nurse. sv 14:15 Triage completed. sv 14:16 ED physician to see patient. sv 14:30 Initial lab(s) drawn, by me, sent to lab. Missed attempt(s): 20 gauge in right sv antecubital area. Bleeding controlled, band aid applied, catheter tip intact. 14:40 CT Stone Protocol In Process Unspecified. EDMS 14:42 Patient moved back from CT. sv 15:55 No provider procedures requiring assistance completed. Patient did not have IV access sv during this emergency room visit. Administered Medications: 15:21 Drug: LevaQUIN 750 mg Route: PO; sv 15:55 Follow up: Response: No adverse reaction sv Outcome: 15:46 Discharge ordered by . rn 15:55 Discharged to home ambulatory. sv 15:55 Condition: stable 15:55 Discharge instructions given to patient, Instructed on discharge instructions, follow up and referral plans. medication usage, Demonstrated understanding of instructions, follow-up care, medications, Prescriptions given X 1. 15:56 Patient left the ED. sv Signatures: Dispatcher [employer] EDWA Cristina Clemens RN RN sv Angelo Quintanilla MD MD rn
[2019-06-15 19:32] VITALS: TEMP 98.2
[2019-06-15 19:35] VITALS: BP 132/74; O2SAT 99
== END 2019-06-15 15:56 | disposition home or self-care (01) ==
LOC: ER 13:54
DX: J18.9 Pneumonia, unspecified organism (principal); I10 Essential (primary) hypertension; Z88.6 Allergy status to analgesic agent
CPT/HCPCS: 36415; 74176; 76377; 80048; 80076; 81003; 81015; 83690; 85025; 86308; 87086; 87088; 87804; 99284

== ENCOUNTER 2019-07-31 07:26 | Day surgery (SDC) | payer OTHER ==
[2019-07-31] MEDS ORDERED: Ringers Lactate 1,000 ML IV ONE (07:44)
[2019-07-31] MEDS ORDERED: propofoL 200 MG/20 ML VIAL IV ONE ×2 (08:24→09:52)
[2019-07-31] MEDS ORDERED: LIDOCAINE 1% MPF 5 ML VIAL ONE (08:24)
--- NOTE | 2019-07-31 09:38 | ENDO RPT ---
[address], [address] COLONOSCOPY PROCEDURE REPORT EXAM DATE: 07/31/2019 PATIENT NAME: Omid Triplett MR #: [id number] BIRTHDATE: 1955 ATTENDING: Rigo Baugh DR STATUS: outpatient PLC CONTROLS ENGINEER: R[facility], Guera Melendez RN, and Mago Ryder RN INDICATIONS: The patient is a 63 yr old Male here for a colonoscopy due to history of colon cancer PROCEDURE PERFORMED: Colonoscopy with biopsy - cold polypectomy MEDICATIONS: Per Anesthesia. ESTIMATED BLOOD LOSS: None CONSENT: The patient understands the risks and benefits of the procedure and understands that these risks include, but are not limited to: sedation, allergic reaction, infection, perforation and/or bleeding. Alternative means of evaluation and treatment include, among others: physical exam, x-rays, and/or surgical intervention. The patient elects to proceed with this endoscopic procedure. DESCRIPTION OF PROCEDURE: During intra-op preparation period all mechanical medical equipment was checked for proper function. Hand hygiene and appropriate measures for infection prevention was taken. Procedure, possible complications, alternatives including, but not limited to possibility of bleeding, perforation, tear, infection, sepsis, need for surgery, need for blood transfusion, were explained to the patient. After the risks, benefits and alternatives of the procedure were thoroughly explained, Informed consent was verified, confirmed and timeout was successfully executed by the treatment team. The patient was placed in the left lateral position. A digital rectal exam was performed and revealed internal hemorrhoids. After appropriate level of anesthesia, the scope was passed. The EC-3890Li ([id number]) and EC-3890Li ([id number]) endoscope was introduced through the anus and advanced to the ileocolic anastamosis. The quality of the prep was fair. The instrument was then slowly withdrawn as the colon was fully examined. Scope withdrawal time was 15 minutes. COLON FINDINGS: Six small smooth sessile polyps with mucous caps were found throughout the entire examined colon. A polypectomy was performed with cold forceps. The resection was complete, the polyp tissue was completely retrieved and sent to histology. Small internal hemorrhoids were found. Retroflexed views revealed small hemorrhoids and polyp. The scope was then completely withdrawn from the patient and the procedure terminated. ADVERSE EVENTS: There were no complications. IMPRESSIONS: 1. Six small sessile polyps were found throughout the entire examined colon; polypectomy was performed in a piecemeal fashion with cold forceps 2. Small internal hemorrhoids RECOMMENDATIONS: 1. fiber rich diet 2. await biopsy results 3. avoid NSAIDS for 2 weeks 4. follow-up: office 2 week(s) 5. Monitor for any evidence of rectal bleeding. 6. hemorrhoidal hygiene RECALL: for Colonoscopy, pending biopsy results. Rigo Baugh DR eSigned: Rigo Baugh DR 07/31/2019 9:37 AM cc: CPT CODES: ICD9 CODES: PATIENT NAME: Omid Triplett MR#: [id number]
[2019-07-31 10:05] VITALS: TEMP 97.5
[2019-07-31 10:14] VITALS: BP 133/84; O2SAT 96
== END 2019-07-31 10:12 | disposition home or self-care (01) ==
LOC: OR 07:26
PROVIDERS: ATTEND Surgery
PROC: 0DBL8ZX Excision of Transverse Colon, Via Natural or Artificial Opening Endoscopic, Diagnostic (ICD-10-PCS; 2019-07-31)
PROC: 0DBN8ZX Excision of Sigmoid Colon, Via Natural or Artificial Opening Endoscopic, Diagnostic (ICD-10-PCS; 2019-07-31)
PROC: 0DBP8ZX Excision of Rectum, Via Natural or Artificial Opening Endoscopic, Diagnostic (ICD-10-PCS; 2019-07-31)
PROC: 0DBM8ZX Excision of Descending Colon, Via Natural or Artificial Opening Endoscopic, Diagnostic (ICD-10-PCS; 2019-07-31)
PROC: 0DBH8ZX Excision of Cecum, Via Natural or Artificial Opening Endoscopic, Diagnostic (ICD-10-PCS; principal; 2019-07-31 08:30)
DX: Z12.11 Encounter for screening for malignant neoplasm of colon (principal); D12.3 Benign neoplasm of transverse colon; K63.5 Polyp of colon; K62.1 Rectal polyp; K64.8 Other hemorrhoids; Z98.0 Intestinal bypass and anastomosis status; Z85.038 Personal history of other malignant neoplasm of large intestine; E78.5 Hyperlipidemia, unspecified; I10 Essential (primary) hypertension; G47.30 Sleep apnea, unspecified; E66.9 Obesity, unspecified; Z68.42 Body mass index [BMI] 45.0-49.9, adult; Z79.82 Long term (current) use of aspirin; Z79.899 Other long term (current) drug therapy
CPT/HCPCS: 88305; J2704; J7120

== ENCOUNTER 2020-08-12 07:20 | Day surgery (SDC) | payer OTHER ==
[2020-08-12] MEDS: Ringers Lactate 1,000 ML IV ONE ×3 (08:15→08:30)
[2020-08-12] MEDS ORDERED: GLYCOPYRROLATE 0.2 MG/ML SYR ONE (08:33)
[2020-08-12] MEDS ORDERED: LIDOCAINE 1% MPF 30 ML VIAL ONE (08:33)
[2020-08-12] MEDS ORDERED: propofoL 200 MG/20 ML VIAL IV ONE (08:33)
--- NOTE | 2020-08-12 09:13 | ENDO RPT ---
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 ESTIMATED BLOOD LOSS: None CONSENT: The patient understands the risks and benefits of the procedure and understands that these risks include, but are not limited to: sedation, allergic reaction, infection, perforation and/or bleeding. Alternative means of evaluation and treatment include, among others: physical exam, x-rays, and/or surgical intervention. The patient elects to proceed with this endoscopic procedure. DESCRIPTION OF PROCEDURE: During intra-op preparation period all mechanical medical equipment was checked for proper function. Hand hygiene and appropriate measures for infection prevention was taken. Procedure, possible complications, alternatives including, but not limited to possibility of bleeding, perforation, tear, infection, sepsis, need for surgery, need for blood transfusion, were explained to the patient. After the risks, benefits and alternatives of the procedure were thoroughly explained, Informed consent was verified, confirmed and timeout was successfully executed by the treatment team. The patient was placed in the left lateral position. A digital rectal exam was performed and revealed external hemorrhoids and A digital rectal exam was performed and revealed internal hemorrhoids. After appropriate level of anesthesia, the scope was passed. The EC-3890Li ([id number]) endoscope was introduced through the anus and advanced to the hepatic flexure. The quality of the prep was fair. The instrument was then slowly withdrawn as the colon was fully examined. Scope withdrawal time was 9 minutes. COLON FINDINGS: A circumferential fungating and ulcerated mass with friable surfaces was found at the prior anastamosis near the hepatic flexure. Multiple biopsies of the lesion were performed using a hot snare. A circumferential, fungating, ulcerated, villous and partially obstructing bleeding tumor/mass of unknown type was seen at the anastamosis near the hepatic flexure. Multiple biopsies of the lesion were performed using cold forceps. Biopsies were performed using a combination of hot snare and cold forcepts, there were multiple smaller polyps in proximity of the circumferential mass @ the prior anastamosis, saline lift was used for snare polypectomy. The distal extent of the polyp / mass was tattood with ink. The scope could not traverse the mass. Moderate sized internal and external hemorrhoids were found. Retroflexed views revealed no abnormalities. The scope was then completely withdrawn from the patient and the procedure terminated. ADVERSE EVENTS: There were no complications. IMPRESSIONS: 1. Circumferential mass was found at the hepatic flexure; multiple biopsies of the lesion were performed 2. Bleeding tumor/mass at the hepatic flexure; multiple biopsies of the lesion were performed 3. Moderate sized internal and external hemorrhoids RECOMMENDATIONS: 1. avoid NSAIDS for 2 weeks 2. await biopsy results 3. follow-up: office 1 week(s) 4. Monitor for any evidence of rectal bleeding. 5. hemorrhoidal hygiene 6. increase dietary water 7. surgery RECALL: Plan for Surgical intervention Rigo Baugh DR eSigned: Rigo Baugh DR 08/12/2020 9:12 AM cc: CPT CODES: ICD9 CODES: PATIENT NAME: Omid Triplett MR#: [id number]
[2020-08-12 09:57] VITALS: BP 140/70; TEMP 97.3; O2SAT 99
== END 2020-08-12 09:55 | disposition home or self-care (01) ==
LOC: OR 07:20
PROVIDERS: ATTEND Surgery
PROC: 0DBL8ZX Excision of Transverse Colon, Via Natural or Artificial Opening Endoscopic, Diagnostic (ICD-10-PCS; principal; 2020-08-12 08:30)
DX: C18.3 Malignant neoplasm of hepatic flexure (principal); Z20.822 Contact with and (suspected) exposure to COVID-19; G47.33 Obstructive sleep apnea (adult) (pediatric); I10 Essential (primary) hypertension; I87.2 Venous insufficiency (chronic) (peripheral); E66.01 Morbid (severe) obesity due to excess calories; K64.9 Unspecified hemorrhoids; K64.4 Residual hemorrhoidal skin tags
CPT/HCPCS: 88305; 45380; U0002; J2704; J7120

== ENCOUNTER 2020-09-02 07:48 | Inpatient (IN) | payer OTHER ==
[2020-08-29 13:28] LABS: Absolute Lymphocytes (CBC) 1.5 K/uL (0.7-4.9); Basophils % 0.8 % (0-1.3); Hematocrit 46.9 % (39.6-49.0); Lymphocytes % 18.8 % (15.3-44.8); MPV 7.8 fL (7.6-11.3); RBC Red Blood Cell Count 5.25 M/uL (4.33-5.43)
[2020-08-29 13:34] LABS: Potassium 3.8 mmol/L (3.5-5.1)
[2020-08-29 13:44] LABS: Protime INR 1.1
--- NOTE | 2020-08-29 13:48 | RAD REPORT ---
EXAM DESCRIPTION: Gaurang Chambers (2 Views)08/29/2020 1:22 pm CLINICAL HISTORY: Preop for colon resection. COMPARISON: 2018 FINDINGS: The lungs appear clear of acute infiltrate. The heart is mildly to moderately enlarged IMPRESSION: No acute abnormalities displayed
[2020-09-02] MEDS ORDERED: Ringers Lactate 1,000 ML IV ONE ×2 (08:47→12:21)
[2020-09-02] MEDS ORDERED: CEFAZOLIN/SWI 2gm 2 GM/20 ML SYR ONE (08:47)
[2020-09-02] MEDS ORDERED: CELECOXIB 100 MG CAPSULE ONE (09:11)
[2020-09-02] MEDS ORDERED: ACETAMINOPHEN 500 MG TAB ONE (09:12)
[2020-09-02] MEDS ORDERED: propofoL 200 MG/20 ML VIAL IV ONE (11:27)
[2020-09-02] MEDS ORDERED: MIDAZOLAM HCL 2 MG/2 ML INJ ONE (11:27)
[2020-09-02] MEDS ORDERED: FENTANYL CITR 100 MCG/2 ML ONE (11:27)
[2020-09-02] MEDS ORDERED: ROCURONIUM 50 MG/5 ML VIAL IV ONE (11:28)
[2020-09-02] MEDS ORDERED: KETOROLAC 30 MG/ML INJ ONE (11:28)
[2020-09-02] MEDS ORDERED: LIDOCAINE 2% MPF 5 ML VIAL ONE (11:28)
[2020-09-02] MEDS ORDERED: dexAMETHasone 10 MG/ML VIAL ONE ×3 (11:28→15:19)
[2020-09-02] MEDS ORDERED: ONDANSETRON 4 MG/2 ML VIAL ONE (11:28)
[2020-09-02] MEDS ORDERED: NS 0.9% VIAL 20 ML ONE (11:38)
[2020-09-02] MEDS ORDERED: BUPIVACAINE 0.25% PF 30 ML VIAL ONE (11:38)
[2020-09-02] MEDS ORDERED: VECURONIUM 10 MG/VIAL IV ONE ×2 (12:35→14:36)
[2020-09-02] MEDS ORDERED: NS 0.9% VIAL 10 ML ONE ×2 (12:35→14:39)
[2020-09-02] MEDS ORDERED: FENTANYL CITR 250 MCG/5 ML ONE (12:38)
[2020-09-02] MEDS ORDERED: LABETALOL 20 MG/4ML SYRINGE IV ONE (13:16)
--- NOTE | 2020-09-02 15:10 | P.OP ---
Preoperative diagnosis: Recurrent Colon Cancer - Transverse Colon Postoperative diagnosis: Recurrent Colon Cancer - Transverse Colon Primary procedure: Exploratory Laparotomy Secondary procedure: Partial Transverse Colectomy with primary ileocolic anastamosis Anesthesia: GETA + Local Estimated blood loss: <50cc Specimen: Colon + small bowel Findings: Severe Desmoplastic Reaction to Mesentery, mid epigastrium Complications: None Drain(s): Urinary catheter, Other (10 mm Flat CLARE) Transferred to: Recovery Room Condition: Good
[2020-09-02] MEDS ORDERED: BUPIVACAINE 0.25% PF 10 ML VIAL ONE (15:18)
[2020-09-02] MEDS: INSULIN -REGULAR HUMAN 50 UNIT/0.5 ML ML SQ SCH ×2 (16:30→19:49)
[2020-09-02] MEDS: HYDROMORPHONE HCL 1 MG/ML INJ IV PRN ×2 (17:37→19:42)
[2020-09-02] MEDS: ONDANSETRON 4 MG/2 ML VIAL IV PRN (17:38)
[2020-09-02] MEDS: D5.45NS W/KCL 20MEQ 1,000 ML IV SCH (18:34)
[2020-09-02] MEDS: CEFAZOLIN/SWI 1gm 1 GM/10 ML SYR IVP SCH ×2 (18:34→23:39)
[2020-09-02 18:36] VITALS: BMI 46.0
[2020-09-02] MEDS: HYDROCODONE/APAP 7.5/325 MG TAB PO PRN (21:52)
[2020-09-03] MEDS: HYDROCODONE/APAP 7.5/325 MG TAB PO PRN ×5 (03:03→21:36)
[2020-09-03] MEDS: D5.45NS W/KCL 20MEQ 1,000 ML IV SCH ×2 (04:16→14:42)
[2020-09-03] MEDS: CEFAZOLIN/SWI 1gm 1 GM/10 ML SYR IVP SCH ×3 (05:30→17:06)
[2020-09-03 05:41] LABS: Absolute Lymphocytes (CBC) 0.9 K/uL (0.7-4.9); Basophils % 0.4 % (0-1.3); Hematocrit 44.8 % (39.6-49.0); Lymphocytes % 5.7 % (15.3-44.8); MPV 7.8 fL (7.6-11.3); RBC Red Blood Cell Count 5.03 M/uL (4.33-5.43)
[2020-09-03 05:53] LABS: Albumin 3.3 g/dL (3.4-5.0); Bilirubin Total 0.7 mg/dL (0.2-1.0); Magnesium 2.3 mg/dL (1.8-2.4); Phosphorus 1.9 mg/dL (2.5-4.9); Protein, Total 6.5 g/dL (6.4-8.2)
[2020-09-03] MEDS: POTASS/SODIUM PHOSPHATE 1 PKT POWD.PACK PO SCH ×3 (06:40→11:19)
[2020-09-03] MEDS: ENOXAPARIN 40 MG/0.4 ML SQ SCH (08:37)
[2020-09-03] MEDS: INSULIN -REGULAR HUMAN 50 UNIT/0.5 ML ML SQ SCH ×4 (08:37→21:00)
[2020-09-03 09:08] LABS: Blood Morphology Comment NOT SEEN (NOT SEEN); Platelet Estimate ADEQ; White Blood Cell Scan OK (OK)
--- NOTE | 2020-09-03 13:29 | P.PN ---
Subjective Date of Service: 09/03/20 Subjective: Improving (Patient feels well generally, has mild post op pain, sitting in chair.) Physical Examination - Vital Signs Temperature: 97.8 F Blood Pressure: 112/58 Pulse: 68 Respirations: 19 Pulse Ox (%): 94 - Physical Exam General: Alert, In no apparent distress, Cooperative Respiratory: Clear to auscultation bilaterally Cardiovascular: No edema, Normal pulses Gastrointestinal: Other (soft, mild appropriate TTP, ND, incision clean, CLARE blood tinged, ) Musculoskeletal: No clubbing, No swelling Integumentary: No rashes - Studies Laboratory Data (last 24 hrs) 09/03/20 05:12: Sodium 137, Potassium 4.0, BUN 13, Creatinine 1.15, Glucose 199 H, Phosphorus 1.9 L, Magnesium 2.3, Total Bilirubin 0.7, AST 19, ALT 26, Alkaline Phosphatase 57 09/03/20 05:12: WBC 16.20 H D, Hgb 14.8, Hct 44.8, Plt Count 223 Assessment And Plan - Current Problems (Diagnosis) (1) Colon cancer Current Visit: No Status: Acute Qualifiers: - Plan 64 year old man s/p Partial Colectomy and ileocolic anastamosis for recurrent colon cancer on 09/02/2020 - Gen: Continue minimal PO narcotic usage - CVS: RRR, - Pulm: incentive spirometry - GI - await bowel function, no NGT, serial exams, Monitor CLARE ouptut - FEN: continue IV hydration @ 100cc/hr, electrolyte correction protocol, continue clear liquid diet, will advance to fulls soon - Renal: SHANNA aponte, good output - ID: wean antibiotics soon - Endo: continue insulin sliding scale - PT/OT - Continue ERAS program
[2020-09-03] MEDS: OXYMETAZOLINE HCL 0.05% 15ML NAS PRN (17:05)
--- NOTE | 2020-09-03 22:04 | OP ---
Date of Procedure: 09/02/2020 Surgeon: Rigo Baugh MD, Brief Hpi: The patient is a 64-year-old male known to me from previous colectomy approximately 2 yea rs ago whereby he had a colonic adenocarcinoma treated operatively with negative margins at that time . He was a stage II colon cancer by pathologic staging. Ultimately had repeat colonoscopies annuall y and on his colonoscopy noted recently, it was noted that a biopsy-proven adenocarcinoma had returne d at the anastomotic site, at the ileo distal transverse anastomotic site. The patient therefore had metastatic workup showing no evidence of metastatic disease and was deemed appropriate for operative intervention. Preoperative Diagnosis: Recurrent colon cancer. Postoperative Diagnosis: Recurrent colon cancer. Procedure Performed: 1.Exploratory laparotomy. 2.Partial transverse colectomy with primary ileocolic anastomosis. 3.Open adhesiolysis. Anesthesia: General endotracheal plus local. Estimated Blood Loss: Less than 50 cc. Specimen: Colon and small bowel. Findings: Severe desmoplastic reaction to the right upper quadrant mesentery. Significant adhesions in an interloop and to the intraabdominal organs including stomach as well as pancreas. Complications: None. Drains: 1.Urinary catheter. 2.10 mm flat CLARE drain. The patient transferred to recovery room in good condition. Procedure In Detail: After informed consent was obtained, the patient was brought to the operating r oom, prepped and draped in the usual sterile fashion in supine position. An incision was made throug h the midline incision after appropriately anesthetizing the skin with a 10 blade. Dissection contin ued down through subcutaneous tissues to expose the fascia at the linea alba. This was opened sharpl y with Metzenbaum scissors and the peritoneum was grasped, elevated, and the abdomen was entered aamir ply. At this point, the incision was then extended superiorly and inferiorly to open the entire lapa rotomy incision through the midline previous incision. At this point, exploration was performed runn ing the small bowel from the ileocolic anastomosis to the ligament of Treitz. There were multiple in terloop adhesions requiring extensive adhesiolysis for 1.5 hours approximately. I then took down the peritoneal attachments by scoring the peritoneum along the transverse colon along the course of the left branch and the middle branch of the middle colic artery. I circumferentially dissected the smal l bowel from the ileocolic anastomosis back for approximately 15 cm. A small mesenteric window was c reated at this point using electrocautery and the KAYLI 75 with a blue load was fired across the small bowel approximately 15 cm distal to the anastomosis from the previous surgery. At this point, the Li gaSure was used to partially takedown the mesentery toward the colon. At this point, continued caref ul dissection was required as there was a severe desmoplastic reaction in the right upper quadrant an d in the epigastric area between the mass, colon, small bowel and associated structures including duo denum and head of pancreas. At this point, circumferential careful blunt dissection was performed to mobilize the colon mass and transverse colon from the surrounding structures. I then palpated the a jolynn of the mass and found approximately an area 10 cm from the mass on the colonic side creating a me senteric window at the distal on the transverse colon. A mesenteric window was created at this point with electrocautery and once again the KAYLI 75 with a blue load was fired across to transect the irwin sverse colon at this point and careful meticulous dissection of the vascular pedicles along the cours e of the middle colic vascular bundle was performed, and the artery and vein were individually clippe d and fiducial markers left in the area of the desmoplastic reaction and dissection continued circumf erentially to ligate these structures using ligature. After the clips were placed at this point, the mass was then removed and sent on to the back table. At this point, the abdomen was irrigated and s uctioned out with sterile water. I then turned my attention to the back table and opened the specime n to ensure complete removal of the specimen. The area was heavily tattooed from previous colonoscop y and the colonic mass was evident at this point. As such, I had good margins both proximal, distal and radially grossly. At this point, I inspected the abdomen and cleared it once again of any efflue nt. No additional hemostatic measures were required. I then brought in a 10-[place] flat CLARE drain, p laced it in the area of the head of pancreas by the previous planned anastomotic area and laid it marimar n at this point. I then placed transverse colon and the small bowel in a jrsx-hu-erwi peristaltic ma nner. I then sutured the proximal and distal aspects using an interrupted proximal and distal 2-0 si lk suture. I then created a colotomy and a small bowel enterotomy using electrocautery, opened these with the hemostats after creating a sterile protected field to prevent spillage. I then fired the G IA 75 and created a common channel. Common channel was inspected. No additional hemostatic measures were required and the mucosa appeared pink and viable on both sides and the anastomosis appeared pat ent. At this point, I suctioned out the area and closed the common channel using a 3-0 PDS suture in a Colleen type running suture and a second layer closure was performed using 3-0 silk Lembert with g ood apposition of the tissues. No leakage was appreciated. The anastomosis was palpated and found t o be widely patent. No hemostatic measures were required. At this point, I closed the mesenteric de fect using a running 3-0 Vicryl suture with good closure of the common defect. At this point, I then positioned the drain and the anastomosis in proximity and brought the omentum over the top to wrap t he anastomosis with the omentum. At this point, I then irrigated the abdomen once again and suctione d out all remaining effluent. Patient was positioned back in neutral position. I then ensured all c ounts were correct. At this point, we placed the abdominal FISH in place and closed the fascia with a #1 looped PDS in a running fashion and pulled the FISH out and then closed the abdomen in its entir ety. At this point, the abdomen was closed. The skin and subcutaneous tissues were irrigated copiou sly and the skin was then closed using interrupted marciano and a sterile dressing was placed over top . The patient tolerated the procedure well without evidence of complication and transferred to PACU in good condition. All counts were correct at the end of the case. TK/MODL Voice ID: [id number] Report ID: [id number]
[2020-09-04] MEDS: D5.45NS W/KCL 20MEQ 1,000 ML IV SCH ×3 (00:29→19:44)
[2020-09-04] MEDS: CEFAZOLIN/SWI 1gm 1 GM/10 ML SYR IVP SCH ×2 (00:29→06:04)
[2020-09-04 06:16] LABS: Absolute Lymphocytes (CBC) 1.6 K/uL (0.7-4.9); Basophils % 0.4 % (0-1.3); Hematocrit 44.6 % (39.6-49.0); Lymphocytes % 11.7 % (15.3-44.8); MPV 7.7 fL (7.6-11.3); RBC Red Blood Cell Count 4.95 M/uL (4.33-5.43)
[2020-09-04 06:38] LABS: Magnesium 3.5 mg/dL (1.8-2.4)
[2020-09-04] MEDS: INSULIN -REGULAR HUMAN 50 UNIT/0.5 ML ML SQ SCH ×4 (07:30→21:00)
--- NOTE | 2020-09-04 08:23 | P.PN ---
Subjective Date of Service: 09/04/20 Subjective: Improving (Patient passing gas, ambulatory in halls, using incentive spirometry, minimal pain medication usage.) Physical Examination - Vital Signs Temperature: 97.5 F Blood Pressure: 131/67 Pulse: 73 Respirations: 18 Pulse Ox (%): 98 - Physical Exam General: Alert, In no apparent distress, Cooperative HEENT: Mucous membr. moist/pink Respiratory: Normal air movement Cardiovascular: Regular rate/rhythm Gastrointestinal: Other (soft, mild appropriate TTP, ND, incision is clean, CLARE serousanguanous) Integumentary: No rashes, No breakdown, No significant lesion Neurological: Normal speech - Studies Laboratory Data (last 24 hrs) 09/04/20 05:50: Phosphorus 2.0 L, Magnesium 3.5 H D 09/04/20 05:50: WBC 13.40 H D, Hgb 14.7, Hct 44.6, Plt Count 202 Assessment And Plan - Current Problems (Diagnosis) (1) Colon cancer Current Visit: No Status: Acute Qualifiers: - Plan 64 year old man s/p Partial Colectomy and ileocolic anastamosis for recurrent colon cancer on 09/02/2020 - Gen: Continue minimal PO narcotic usage, - CVS: RRR, - Pulm: incentive spirometry - GI - serial exams, Monitor CLARE ouptut - FEN: continue IV hydration @ 100cc/hr, electrolyte correction protocol, Full liquid diet, will advance to fulls soon - Renal: SHANNA lynney 09/03, good output - ID: wean antibiotics soon - Endo: continue insulin sliding scale - PT/OT - Continue ERAS program
[2020-09-04] MEDS: ENOXAPARIN 40 MG/0.4 ML SQ SCH (08:25)
[2020-09-04] MEDS: OXYMETAZOLINE HCL 0.05% 15ML NAS PRN ×2 (08:25→19:41)
[2020-09-04] MEDS: HYDROCODONE/APAP 7.5/325 MG TAB PO PRN ×4 (10:39→23:52)
[2020-09-04] MEDS: ONDANSETRON 4 MG/2 ML VIAL IV PRN (16:37)
[2020-09-05] MEDS: D5.45NS W/KCL 20MEQ 1,000 ML IV SCH ×2 (06:00→16:00)
[2020-09-05] MEDS: HYDROCODONE/APAP 7.5/325 MG TAB PO PRN ×3 (06:05→14:45)
[2020-09-05 06:40] LABS: Magnesium 2.4 mg/dL (1.8-2.4); Phosphorus 2.4 mg/dL (2.5-4.9)
[2020-09-05 07:24] LABS: Basophils % 0.4 % (0-1.3); Hematocrit 44.2 % (39.6-49.0); Lymphocytes % 9.6 % (15.3-44.8); MPV 7.7 fL (7.6-11.3); RBC Red Blood Cell Count 4.97 M/uL (4.33-5.43)
[2020-09-05] MEDS: INSULIN -REGULAR HUMAN 50 UNIT/0.5 ML ML SQ SCH ×4 (07:30→21:00)
[2020-09-05] MEDS: ENOXAPARIN 40 MG/0.4 ML SQ SCH (08:51)
--- NOTE | 2020-09-05 12:09 | P.PN ---
Subjective Date of Service: 09/05/20 Subjective: Improving (Passing more gas, had some pain yesterday, but improved now, ambulatory, using incentive spirometry, tolerating fulls) Physical Examination - Vital Signs Temperature: 97.9 F Blood Pressure: 168/78 Pulse: 75 Respirations: 15 Pulse Ox (%): 94 - Physical Exam General: Alert, In no apparent distress, Cooperative Respiratory: Clear to auscultation bilaterally, Normal air movement, Other (IS ~ 1250) Cardiovascular: Regular rate/rhythm Gastrointestinal: Other (soft, mild appropriate TTP, ND, incision clean, CLARE serosanguanous) - Studies Laboratory Data (last 24 hrs) 09/05/20 07:12: WBC 10.80 D, Hgb 14.6, Hct 44.2, Plt Count 191 09/05/20 05:16: Phosphorus 2.4 L, Magnesium 2.4 D Assessment And Plan - Current Problems (Diagnosis) (1) Colon cancer Current Visit: No Status: Acute Qualifiers: - Plan 64 year old man s/p Partial Colectomy and ileocolic anastamosis for recurrent colon cancer on 09/02/2020 - Gen: Continue minimal PO narcotic usage, toradol PRN - CVS: RRR, HTN - start home meds - Pulm: incentive spirometry - GI - serial exams, Monitor CLARE ouptut - FEN: continue IV hydration @ 100cc/hr, electrolyte correction protocol, Full liquid diet - Renal: DC aponte 09/03, good output - ID: DC antibiotics - Endo: continue insulin sliding scale - PT/OT - Continue ERAS program
[2020-09-05] MEDS: hydroCHLOROthiazide 25 MG TAB PO SCH (12:21)
[2020-09-05] MEDS: lisinopriL 10 MG TAB PO SCH (12:21)
[2020-09-05] MEDS ORDERED: D5.45NS W/KCL 20MEQ 1,000 ML IV SCH (17:00)
[2020-09-05] MEDS: OXYMETAZOLINE HCL 0.05% 15ML NAS PRN (18:51)
[2020-09-05] MEDS: KETOROLAC 30 MG/ML INJ IV PRN (18:51)
[2020-09-05 22:20] VITALS: O2SAT 95
[2020-09-06] MEDS: KETOROLAC 30 MG/ML INJ IV PRN (02:06)
[2020-09-06 05:58] LABS: Absolute Lymphocytes (CBC) 1.1 K/uL (0.7-4.9); Basophils % 0.3 % (0-1.3); Hematocrit 43.6 % (39.6-49.0); Lymphocytes % 12.5 % (15.3-44.8); MPV 7.3 fL (7.6-11.3); RBC Red Blood Cell Count 4.86 M/uL (4.33-5.43)
[2020-09-06] MEDS: HYDROCODONE/APAP 7.5/325 MG TAB PO PRN ×2 (06:11→10:13)
[2020-09-06 06:22] LABS: Magnesium 2.3 mg/dL (1.8-2.4)
[2020-09-06] MEDS: INSULIN -REGULAR HUMAN 50 UNIT/0.5 ML ML SQ SCH (07:30)
[2020-09-06] MEDS: hydroCHLOROthiazide 25 MG TAB PO SCH (09:07)
[2020-09-06] MEDS: lisinopriL 10 MG TAB PO SCH (09:07)
[2020-09-06 09:09] VITALS: BP 141/79
[2020-09-06] MEDS: ENOXAPARIN 40 MG/0.4 ML SQ SCH (09:11)
--- NOTE | 2020-09-06 10:09 | P.DS ---
Admission Date: 09/02/20 Discharge Date: 09/06/20 Disposition: ROUTINE DISCHARGE Discharge Condition: GOOD Consultations: none Procedures: 1.) Exploratory Laparotomy partial colectomy with ileocolic anastamosis - ileo- transverse colon - Problems (1) Colon cancer Current Visit: No Status: Acute Qualifiers: Colon location: transverse Qualified Code(s): C18.4 - Malignant neoplasm of transverse colon Brief History of Present Illness: Patient is a 64 year old man who presents with recurrent colon cancer @ prior anastamosis, he had a RIGHT hemicolectomy on that occasion, and now has recurrent colon cancer found on surveillance colonoscopy. Hospital Course: Patient did well after surgery, tolerating diet, ambulatory, pain well controlled with minimal narcotic usage, mutliple bowel movements, passing large amount of gas, no nausea - ERAS program utilized Vital Signs/Physical Exam: Temp Pulse Resp BP Pulse Ox 97.5 F 79 19 141/79 H 94 09/06/20 00:00 09/06/20 09:07 09/06/20 07:11 09/06/20 09:07 09/06/20 07:11 General: In no apparent distress, Cooperative HEENT: Mucous membr. moist/pink Respiratory: Clear to auscultation bilaterally, Normal air movement Cardiovascular: Regular rate/rhythm Gastrointestinal: Other (CLARE removed, soft, mild appropriate TTP, ND, marciano in place, ) Neurological: Normal speech Laboratory Data at Discharge: WBC 8.70 K/uL (4.3-10.9) D 09/06/20 05:39 Hgb 14.3 g/dL (13.6-17.9) 09/06/20 05:39 Hct 43.6 % (39.6-49.0) 09/06/20 05:39 Plt Count 202 K/uL (152-406) 09/06/20 05:39 PT 12.7 SECONDS (9.5-12.5) H 08/29/20 13:08 INR 1.10 08/29/20 13:08 APTT 25.8 SECONDS (24.3-36.9) 08/29/20 13:08 Sodium 137 mmol/L (136-145) 09/03/20 05:12 Potassium 4.0 mmol/L (3.5-5.1) 09/03/20 05:12 BUN 13 mg/dL (7-18) 09/03/20 05:12 Creatinine 1.15 mg/dL (0.55-1.3) 09/03/20 05:12 Glucose 199 mg/dL (74-106) H 09/03/20 05:12 Phosphorus 3.0 mg/dL (2.5-4.9) 09/06/20 05:39 Magnesium 2.3 mg/dL (1.8-2.4) 09/06/20 05:39 Total Bilirubin 0.7 mg/dL (0.2-1.0) 09/03/20 05:12 AST 19 U/L (15-37) 09/03/20 05:12 ALT 26 U/L (12-78) 09/03/20 05:12 Alkaline Phosphatase 57 U/L (45-117) 09/03/20 05:12 Home Medications: Lisinopril/Hydrochlorothiazide [Lisinopril-Hctz 10-12.5 mg Tab] 1 tab PO DAILY 08/15/18 Aspirin Chewable [Aspirin Chewable*] 81 mg PO DAILY 07/27/19 Fexofenadine HCl [[place] Allergy] 180 mg PO DAILY PRN 07/27/19 Fluticasone [Flonase 50MCG Nasal [place]*] 1 sprays YOLANDE BID PRN 07/27/19 Magnesium Citrate 125 mg PO DAILY 07/27/19 Diet: soft Activity: No lifting more than 10 lbs Followup: Rigo Baugh MD [ACTIVE - CAN ADMIT] - 1 Week Time spent managing pt's care (in minutes): 40
[2020-09-06 10:19] VITALS: TEMP 98.7
== END 2020-09-06 11:02 | disposition home or self-care (01) | DRG 330 ==
LOC: OR 07:48 → 2ND 16:44
PROVIDERS: ADMIT Surgery; ATTEND Surgery
PROC: 0DTL0ZZ Resection of Transverse Colon, Open Approach (ICD-10-PCS; principal; 2020-09-02 09:15)
DX: C18.4 Malignant neoplasm of transverse colon (principal); Z68.42 Body mass index [BMI] 45.0-49.9, adult; E66.01 Morbid (severe) obesity due to excess calories; Z79.82 Long term (current) use of aspirin; Z79.899 Other long term (current) drug therapy; Z20.822 Contact with and (suspected) exposure to COVID-19
CPT/HCPCS: 36415; 71046; 80048; 80053; 82947; 83735; 84100; 85025; 85610; 85730; 86850; 86900; 86901; 88307; 88309; 93005; 94010; 94760; 97116; 97161; 97530; J0690; J1100; J1170; J1650; J2250; J2405; J2704; J3010; J7120; U0003